=== PATIENT | male | born 1940 | race Caucasian/White ===

== ENCOUNTER 2016-06-12 20:34 | Emergency (ER) | payer MEDICARE, BC | END 2016-06-12 23:01 | disposition home or self-care (01) | DX: R07.89 Other chest pain (principal); I44.7 Left bundle-branch block, unspecified; Z95.2 Presence of prosthetic heart valve; Z79.01 Long term (current) use of anticoagulants; J45.909 Unspecified asthma, uncomplicated; Z86.73 Personal history of transient ischemic attack (TIA), and cerebral infarction without residual deficits; Z87.891 Personal history of nicotine dependence ==

== ENCOUNTER 2016-06-28 09:10 | Outpatient (CLI) | payer MEDICARE, BC ==
[2016-06-28] MEDS ORDERED: BARIUM SULFATE 135 ML BOTTLE PO ONE (10:11)
[2016-06-28] MEDS ORDERED: BARIUM SULFATE 176 GM BOTTLE PO ONE (10:11)
== END 2016-06-28 09:11 | disposition home or self-care (01) ==
DX: K21.9 Gastro-esophageal reflux disease without esophagitis (principal); K44.9 Diaphragmatic hernia without obstruction or gangrene; K22.8 Other specified diseases of esophagus
CPT/HCPCS: 74220; A9270

== ENCOUNTER 2017-01-26 09:00 | Outpatient (CLI) | payer MEDICARE, BC ==
[2017-01-26 13:41] LABS: BASOPHILS # (AUTO) 0.1 10^3/uL (0.0-0.1); EOSINOPHILS # (AUTO) 0.2 10^3/uL (0.0-0.7); EOSINOPHILS % (AUTO) 3.5 %; HCT - HEMATOCRIT 41.4 % (42.0-52.0); HGB - HEMOGLOBIN 14.4 g/dL (14.0-18.0); LYMPHOCYTES # (AUTO) 1.2 10^3/uL (1.5-3.5); MEAN CORPUSCULAR HEMOGLOBIN 31.7 pg (27.0-31.0); MEAN CORPUSCULAR HGB CONC 34.8 g/dL (32.0-36.0); MEAN PLATELET VOLUME 9.2 fL (7.4-11.4); MONOCYTES # (AUTO) 0.7 10^3/uL (0.0-1.0); MONOCYTES % (AUTO) 12.7 %; NEUTROPHILS # (AUTO) 3.1 10^3/uL (1.5-6.6); NEUTROPHILS % (AUTO) 59.8 %; RED BLOOD COUNT 4.56 10^6/uL (4.70-6.10); RED CELL DISTRIBUTION WIDTH 13.6 % (12.0-15.0); UNCORRECTED WHITE BLOOD COUNT 5.3 x10^3/uL; WHITE BLOOD COUNT 5.3 x10^3/uL (4.8-10.8)
[2017-01-26 13:49] LABS: ALBUMIN/GLOBULIN RATIO 1.6 (1.0-2.2); BILIRUBIN,TOTAL 1.2 mg/dL (0.2-1.0); BUN - BLOOD UREA NITROGEN 14 mg/dL (6-20); CALCIUM 9.6 mg/dL (8.5-10.3); CARBON DIOXIDE - CO2 30 mmol/L (21-32); CHLORIDE 105 mmol/L (101-111); CHOL/HDL RATIO 3.9 (<5.0); CHOLESTEROL 105 mg/dL; CREATININE 0.9 mg/dL (0.6-1.2); GFR - MDRD 82 (>89); GLUCOSE 97 mg/dL (70-100); HDL CHOLESTEROL 27 mg/dL; LDL/HDL RATIO 1.5 (<3.6); SODIUM 140 mmol/L (135-145); TOTAL PROTEIN 7.2 g/dL (6.7-8.2); TRIGLYCERIDES 191 mg/dL; VLDL CHOLESTEROL 38 mg/dL
== END 2017-01-26 09:01 ==
LOC: LAB.WCP 09:00
PROVIDERS: ATTEND Family Medicine
DX: R42 Dizziness and giddiness (principal); Q23.1 Congenital insufficiency of aortic valve; I10 Essential (primary) hypertension; I62.9 Nontraumatic intracranial hemorrhage, unspecified
CPT/HCPCS: 36415; 80053; 80061; 84443; 85025

== ENCOUNTER 2017-03-09 08:41 | Day surgery (SDC) | payer MEDICARE, BC ==
[2017-03-09] MEDS ORDERED: LACTATED RINGERS 1,000 ML IV ONE (08:51)
--- NOTE | 2017-03-09 09:42 | HISTORY & PHYSICAL EXAMINATION ---
HPI - History of Present Illness HPI Comment/Other: This is to serve as an update from H and P performed in January. Patient's last colonoscopy was in 2013 and was noted for a less than 1 cm tubular adenoma and a less than 1 cm sessile serrated adenoma at 70 cm.He denies any changes in his bowel habits including constipation or diarrhea. He denies any blood in his stools. He has no family history of colon cancer. He stopped taking his coumadin 5 days ago and has been bridged with Lovenox. Current Meds: PRILOSEC 20 MG CPDR (OMEPRAZOLE) Take one capsule by mouth one-half hour before evening meal ANUSOL-HC 2.5 % CREA (HYDROCORTISONE) Apply to affected area three times daily as needed COUMADIN 5 MG TABS (WARFARIN SODIUM) Monday - 5mg; Monday - 7.5mg; Monday - 5mg ; Monday - 7.5mg; - 5mg; Monday - 7.5mg; Monday - 5mg. FLUTICASONE PROPIONATE 50 MCG/ACT SUSP (FLUTICASONE PROPIONATE) Use one spray each nostril twice daily for allergies * [facility] Neurosurgery for intracranial bleed VITAMIN B-12 250 MCG TABS (CYANOCOBALAMIN) Take one tablet by mouth daily FLUOCINONIDE 0.05 % OINT (FLUOCINONIDE) Apply sparingly to affected area one to two times daily, taper as symptoms improve LISINOPRIL 20 MG TABS (LISINOPRIL) Take one tablet by mouth daily HYDROCHLOROTHIAZIDE 12.5 MG CAPS (HYDROCHLOROTHIAZIDE) Take one capsule by mouth daily SIMVASTATIN 20 MG TABS (SIMVASTATIN) Take one tablet by mouth at bedtime METAMUCIL 0.52 GM CAPS (PSYLLIUM) 4 caps daily FLONASE 50 MCG/ACT SUSP (FLUTICASONE PROPIONATE) [place] one spray each nostril twice daily as needed for allergies ALBUTEROL AERS (ALBUTEROL AERS) 2 puffs q4-6h prn wheezing Allergies: * CATS (Moderate) Past Medical History: Reviewed history from 06/29/2016 and no changes required: 1964, 1970--Mumps 2.11.2005--ER @[facility]--2hr episode of dysarthria, R. facial droop, R. side paresthesia. TIA, embolic to L. hemisphere. Inc. 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) Craniotomy: Tonsillectomy Denies any prior history of complications from anesthesia. Denies any history of surgical complications. Family History Summary: Reviewed history Last on 11/25/2016 and no changes required:01/20/2017 Son () - Has a son who is alive and well - Entered On: 08/06/2014 Mother (eliel.) - Has a Hx of Heart Disease - Entered On: 09/25/2014 Mother (eliel.) - Has a Hx of Stroke/CVA - Entered On: 09/25/2014 Mother (eliel.) - Has a Hx of Angina - Entered On: 09/25/2014 Father (eliel.) - Has Family History of Arthritis - Entered On: 06/29/2016 Father (eliel.) - Has Family History of Hypertension - Entered On: 06/29/2016 Mother (eliel.) - Has a Hx of Arthritis - Entered On: 01/20/2017 Mother (eliel.) - Has Family History of Other Medical Problems - Heart failure - Entered On: 01/20/2017 Father (eliel.) - Has Family History of Other Medical Problems - heart condition - Entered On: 01/20/2017 Social History: Reviewed history from 06/29/2016 and no changes required: Patient has never smoked. Passive smoke exposure - no Alcohol Use - yes Drug Use - no Smoking History: Patient is a former smoker. Risk Factors: Smoked Tobacco Use: Former smoker Drug use: no Alcohol use: yes Type: wine Drinks per day: <1 Exercise: yes Times per week: 3 Type of Exercise: stretches/strengthening Vital Signs: Patient Profile: 76 Years Old Male Height: 68.75 inches Weight: 193.2 pounds BMI: 28.74 O2 Sat: 95 % on room air Temp: 98.4 degrees F temporal Pulse rate: 64 / minute Pulse rhythm: regular Resp: 18 per minute BP sittin / 74 Cuff size: regular Vitals Entered By: Karri Og RN (January 20, 2017 1:33 PM) Problems were reviewed with the patient during this visit. Medications were reviewed with the patient during this visit. Allergies were reviewed with the patient during this visit. Allergies: * CATS (Moderate) Physical Exam General: well developed, well nourished, in no acute distress Lungs: clear bilaterally to A & P Heart: regular rate and rhythm, S1, S2 without murmurs, rubs, gallops, or clicks Abdomen: bowel sounds positive; abdomen soft and non-tender without masses, organomegaly, or hernias noted Pulses: pulses normal in all 4 extremities Extremities: no clubbing, cyanosis, edema, or deformity noted with normal full range of motion of all joints Cervical Nodes: no significant adenopathy Psych: alert and cooperative; normal mood and affect; normal attention span and concentration Impression & Recommendations: Problem # 1: Colonic polyps, adenomatous (ICD-211.3) ([id number]) Will proceed with colonoscopy. PMH/PSH - Past Medical History Cardiovascular: positive: Arrhythmia, Valve disorder Respiratory: positive: Asthma, Sleep apnea, CPAP use Neuro: positive: CVA, TIA Endocrine/Autoimmune: positive: None GI: positive: None, Colon polyps, Hemorrhoids, Diverticulitis : positive: None HEENT: positive: None, Chronic vision loss Psych: positive: None Musculoskeletal: positive: Osteoarthritis, Chronic back pain Derm: positive: Psoriasis, Other MRSA Hx?: No - Past Surgical History Cardiovascular: positive: Valve replacement HEENT: positive: Tonsil/Adenoidectomy Social & Family Hx - Social History Does the pt smoke?: No Smoking Status: Former smoker Does the pt drink ETOH?: Yes ETOH Use: Wine Does the pt have substance abuse?: No Meds/Allgy - Home Medications Home Medications: Ambulatory Orders Medication Instructions Recorded Confirmed Simvastatin 20 mg PO DAILY 09/13/13 03/09/17 Warfarin [Coumadin] 5 mg PO TUTHSA@1400 09/13/13 03/09/17 Lisinopril 20 mg PO DAILY 03/17/16 03/09/17 Fluticasone [Flonase] 2 sprays NICOLE DAILY 05/05/16 03/09/17 Hydrochlorothiazide 12.5 mg PO DAILY 05/05/16 03/09/17 Warfarin [Coumadin] 7.5 mg PO SUMOWEFR@1400 05/05/16 03/09/17 - Allergies Allergies/Adverse Reactions: Allergies Allergy/AdvReac Type Severity Reaction Status Date / Time No Known Drug Allergies Allergy Verified 03/17/16 11:37 Exam - Vital Signs Vital Signs: Vital Signs x48h Temp Pulse Resp BP Pulse Ox 03/09/17 08:51 36 C L 61 16 150/79 H 99
[2017-03-09] MEDS ORDERED: MIDAZOLAM 2 MG/2 ML VIAL IVP ONE (09:46)
[2017-03-09] MEDS ORDERED: fentaNYL 100 MCG/2 ML VIAL IVP ONE (09:46)
[2017-03-09 10:50] VITALS: BP 147/74
== END 2017-03-09 08:42 | disposition home or self-care (01) ==
LOC: SDS 08:41
PROVIDERS: ATTEND Surgery
PROC: 0DBK8ZX Excision of Ascending Colon, Via Natural or Artificial Opening Endoscopic, Diagnostic (ICD-10-PCS; principal; 2017-03-09 09:45)
DX: D12.2 Benign neoplasm of ascending colon (principal); K57.90 Diverticulosis of intestine, part unspecified, without perforation or abscess without bleeding; I10 Essential (primary) hypertension; E78.5 Hyperlipidemia, unspecified; Z95.2 Presence of prosthetic heart valve; J45.909 Unspecified asthma, uncomplicated; Z79.01 Long term (current) use of anticoagulants; Z87.891 Personal history of nicotine dependence
CPT/HCPCS: 45385; J7120

== ENCOUNTER 2017-03-30 07:28 | Day surgery (SDC) | payer MEDICARE, BC ==
[~2017-03-30 07:28] MED LIST: BRIMONIDINE 0.2% OPHTH DROPS 5 ML ONE; CYCLOPENTOLATE 1% OPHTH DROPS 2 ML ONE; KETOROLAC 0.45% OPHTH DROPS ONE; PHENYLEPHRINE 2.5% OPHTH 2 ML DROPS ONE; PROPARACAINE 0.5% OPHTH DROPS 15 ML ONE; TIMOLOL 0.5% OPHTH DROPS ONE
[2017-03-30] MEDS ORDERED: MIDAZOLAM 2 MG/2 ML VIAL IVP ONE (07:30)
[2017-03-30] MEDS ORDERED: KETOROLAC 0.45% OPHTH DROPS OPTH ONE (07:45)
[2017-03-30] MEDS ORDERED: CYCLOPENTOLATE 1% OPHTH DROPS 2 ML OPTH ONE (07:45)
[2017-03-30] MEDS ORDERED: PHENYLEPHRINE 2.5% OPHTH 2 ML DROPS OPTH ONE (07:45)
[2017-03-30] MEDS ORDERED: PROPARACAINE 0.5% OPHTH DROPS 15 ML OPTH ONE ×2 (07:45→08:48)
[2017-03-30] MEDS ORDERED: LACTATED RINGERS 500 ML IV ONE (07:54)
[2017-03-30] MEDS ORDERED: BRIMONIDINE 0.2% OPHTH DROPS 5 ML OPTH ONE (08:47)
[2017-03-30] MEDS ORDERED: BSS/LIDOCAINE/EPINEPHRINE 1 ML SYRINGE IO ONE ×2 (08:48)
[2017-03-30] MEDS ORDERED: EPINEPHrine 1 MG/ML AMP IVP ONE (08:48)
[2017-03-30] MEDS ORDERED: TIMOLOL 0.5% OPHTH DROPS OPTH ONE (08:48)
[2017-03-30] MEDS ORDERED: CHONDR SULF/HYALURONATE SYRINGE IO ONE (08:48)
[2017-03-30] MEDS ORDERED: TRIAMCIN/MOXIFLOX/VANCO 1 ML VIAL IO ONE ×2 (08:49)
[2017-03-30 09:10] VITALS: BP 117/66
--- NOTE | 2017-03-30 09:20 | OPERATIVE REPORT ---
DATE OF SURGERY: 03/30/2017 00:00:00 PREOPERATIVE DIAGNOSIS: Visually significant cataract, right eye. This was his first cataract surgery . POSTOPERATIVE DIAGNOSIS: Visually significant cataract, right eye. This was his first cataract surger y. NAME OF PROCEDURE: Phacoemulsification posterior chamber intraocular lens implant, right eye. SURGEON: Eddy Negrete MD. ANESTHESIA: Monitored anesthesia care. COMPLICATIONS: None. OPERATIVE INDICATIONS: This is a 76-year-old man with progressive vision loss in the right eye due to 2+ nuclear sclerotic cataract. Best corrected visual acuity was 20/50 with glare to 20/80 in the rig ht eye. INDICATIONS FOR SURGERY: Overall decrease in vision, difficulty seeing words on a computer screen, di fficulty reading, difficulty words or game scores on TV, difficulty seeing street signs, and difficul ty with glare or bright lights in any situation. He was consented at length concerning the risks and benefits of cataract surgery, after which he expressed a desire to proceed with surgery. OPERATIVE PROCEDURE: The patient was taken into OR #2 and placed under monitored anesthesia care. A s urgical time-out was conducted confirming the correct patient, correct procedure and correct surgical site. He was given topical anesthesia and prepped and draped in the usual sterile fashion. The eye w as entered at the 12 and 9 o'clock positions. Intracameral Shugarcaine was injected into the anterior chamber followed by Viscoat. A continuous tear curvilinear capsulorrhexis was performed. The nucleus was hydrodissected and phacoemulsified. The cortex was evacuated using automated infusion aspiration . Provisc was injected in the capsular bag and a 21.0 diopter intraocular lens inserted into the bag. Approximately 0.7 mL of a mixture of triamcinolone, moxifloxacin, and vancomycin was injected subcon junctivally in the superior quadrant for infection and inflammation prophylaxis. I/A was used to evac uate the viscoelastic materials. The eye was inflated to physiologic pressure using balanced salt andrew ution and found to be watertight. The patient was taken from the operating room in good condition and given postoperative instructions. JOB #: [id number] EXT JOB #:[id number]
== END 2017-03-30 07:29 | disposition home or self-care (01) ==
LOC: SDS 07:28
PROVIDERS: ATTEND Ophthalmology
PROC: 08RJ3JZ Replacement of Right Lens with Synthetic Substitute, Percutaneous Approach (ICD-10-PCS; principal; 2017-03-30 08:30)
DX: H25.11 Age-related nuclear cataract, right eye (principal); I10 Essential (primary) hypertension; Z86.73 Personal history of transient ischemic attack (TIA), and cerebral infarction without residual deficits; Z95.2 Presence of prosthetic heart valve; Z79.01 Long term (current) use of anticoagulants
CPT/HCPCS: 66984; A9270; J3490; V2632

== ENCOUNTER 2017-10-13 15:18 | Outpatient (CLI) | payer MEDICARE, BC ==
[2017-10-13 19:28] LABS: BASOPHILS % (AUTO) 0.7 %; EOSINOPHILS # (AUTO) 0.1 10^3/uL (0.0-0.7); EOSINOPHILS % (AUTO) 2.3 %; HGB - HEMOGLOBIN 14.5 g/dL (14.0-18.0); LYMPHOCYTES # (AUTO) 1.5 10^3/uL (1.5-3.5); LYMPHOCYTES % (AUTO) 23.2 %; MEAN CORPUSCULAR HGB CONC 33.6 g/dL (32.0-36.0); MEAN CORPUSCULAR VOLUME 92.1 fL (80.0-94.0); MEAN PLATELET VOLUME 9.2 fL (7.4-11.4); MONOCYTES # (AUTO) 0.8 10^3/uL (0.0-1.0); MONOCYTES % (AUTO) 11.9 %; NEUTROPHILS % (AUTO) 61.9 %; PLT - PLATELET COUNT 206 10^3/uL (130-450); RED BLOOD COUNT 4.69 10^6/uL (4.70-6.10); RED CELL DISTRIBUTION WIDTH 13.7 % (12.0-15.0); WHITE BLOOD COUNT 6.4 x10^3/uL (4.8-10.8)
[2017-10-13 19:41] LABS: ALBUMIN 4.7 g/dL (3.2-5.5); ALBUMIN/GLOBULIN RATIO 1.6 (1.0-2.2); BILIRUBIN,TOTAL 1.6 mg/dL (0.2-1.0); CALCIUM 9.5 mg/dL (8.5-10.3); CREATININE 0.9 mg/dL (0.6-1.2); TOTAL PROTEIN 7.7 g/dL (6.7-8.2)
== END 2017-10-13 15:19 | disposition home or self-care (01) ==
LOC: LAB.WCP 15:18
PROVIDERS: ATTEND Family Medicine
DX: R14.0 Abdominal distension (gaseous) (principal)
CPT/HCPCS: 36415; 80053; 85025

== ENCOUNTER 2017-10-20 11:13 | Outpatient (CLI) | payer MEDICARE, BC ==
[2017-10-20] MEDS ORDERED: IOPAMIDOL-300 100 ML VIAL IVP ONE (12:01)
[2017-10-20] MEDS ORDERED: IOPAMIDOL-300 50 ML VIAL PO ONE (12:01)
[2017-10-20] MEDS ORDERED: IOPAMIDOL-300 50 ML VIAL ONE (12:05)
[2017-10-20] MEDS ORDERED: IOPAMIDOL-300 100 ML VIAL ONE (12:05)
--- NOTE | 2017-10-20 13:50 | CT Report ---
ABDOMEN PELVIS CT WITH CONTRAST: 10/20/2017 COMPARISON: No comparison. INDICATION: Abdominal bloating. TECHNIQUE: Axial imaging of the abdomen and pelvis following the administration of oral and intravenous contrast, 100 mL of Isovue, 300. FINDINGS: There is a device about the aortic valve. Limited lung bases appear otherwise unremarkable apart from a 3 mm nodule in the left lung base axial image #1. The liver, spleen, pancreas and adrenal glands appear unremarkable. There is a tiny low attenuating focus in the right kidney, too small to characterize. Left kidney appears unremarkable. No free air or free fluid in the abdomen. There is a very small umbilical hernia containing fat only. No abnormalities of bowel are seen, apart from colon diverticula. There is no evidence of diverticulitis. There are no bone lesions. IMPRESSION: THERE ARE NO CT FINDINGS TO SUGGEST A CAUSE OF THE PATIENT'S SYMPTOMS. There is a 3 mm pulmonary nodule. No follow up in a low risk patient. In a high risk patient, may consider follow up at [address] DOSE REDUCTION STATEMENT In accordance with CT protocol optimization, one or more of the following dose reduction techniques were utilized for this exam: automated exposure control, adjustment of mA and/or KV based on patient size, or use of iterative reconstructive technique. TD: 10/20/2017 13:49 MTDD
== END 2017-10-20 11:14 | disposition home or self-care (01) ==
LOC: DI 11:13
PROVIDERS: ATTEND Family Medicine
DX: R14.0 Abdominal distension (gaseous) (principal); M17.9 Osteoarthritis of knee, unspecified
CPT/HCPCS: 74177; Q9967

== ENCOUNTER 2018-04-16 10:15 | Outpatient (CLI) | payer MEDICARE, BC | END 2018-04-16 10:16 | disposition home or self-care (01) | LOC: SC 10:15 | PROVIDERS: ATTEND Nurse Practitioner Family | DX: G47.33 Obstructive sleep apnea (adult) (pediatric) (principal) | CPT/HCPCS: 99214; G0463; 99212 ==

== ENCOUNTER 2018-07-25 09:04 | Outpatient (CLI) | payer MEDICARE, BC ==
[2018-07-25 12:50] LABS: BASOPHILS # (AUTO) 0.1 10^3/uL (0.0-0.1); BASOPHILS % (AUTO) 1.1 %; EOSINOPHILS # (AUTO) 0.2 10^3/uL (0.0-0.7); EOSINOPHILS % (AUTO) 3.1 %; HGB - HEMOGLOBIN 15.1 g/dL (14.0-18.0); LYMPHOCYTES # (AUTO) 1.2 10^3/uL (1.5-3.5); LYMPHOCYTES % (AUTO) 20.4 %; MEAN CORPUSCULAR HEMOGLOBIN 31.6 pg (27.0-31.0); MEAN CORPUSCULAR HGB CONC 33.5 g/dL (32.0-36.0); MEAN CORPUSCULAR VOLUME 94.4 fL (80.0-94.0); MEAN PLATELET VOLUME 8.8 fL (7.4-11.4); MONOCYTES # (AUTO) 0.7 10^3/uL (0.0-1.0); NEUTROPHILS # (AUTO) 3.7 10^3/uL (1.5-6.6); NEUTROPHILS % (AUTO) 63.4 %; PLT - PLATELET COUNT 202 10^3/uL (130-450); RED BLOOD COUNT 4.79 10^6/uL (4.70-6.10); RED CELL DISTRIBUTION WIDTH 13.7 % (12.0-15.0); WHITE BLOOD COUNT 5.9 x10^3/uL (4.8-10.8)
[2018-07-25 13:25] LABS: ALBUMIN 4.6 g/dL (3.2-5.5); ALBUMIN/GLOBULIN RATIO 1.5 (1.0-2.2); ALKALINE PHOSPHATASE 77 IU/L (42-121); ALT ALANINE AMINOTRANSFERASE 27 IU/L (10-60); AST ASPARTATE AMINOTRANSFERASE 28 IU/L (10-42); BILIRUBIN,TOTAL 1.3 mg/dL (0.2-1.0); BUN - BLOOD UREA NITROGEN 16 mg/dL (6-20); CALCIUM 9.8 mg/dL (8.5-10.3); CARBON DIOXIDE - CO2 29 mmol/L (21-32); CHLORIDE 102 mmol/L (101-111); CHOL/HDL RATIO 3.8 (<5.0); CHOLESTEROL 122 mg/dL; CREATININE 0.9 mg/dL (0.6-1.2); GFR - MDRD 81 (>89); GLUCOSE 107 mg/dL (70-100); HDL CHOLESTEROL 32 mg/dL; LDL CHOLESTEROL,CALCULATED 54 mg/dL; LDL/HDL RATIO 1.7 (<3.6); SODIUM 139 mmol/L (135-145); TOTAL PROTEIN 7.6 g/dL (6.7-8.2); VLDL CHOLESTEROL 36 mg/dL
== END 2018-07-25 09:05 | disposition home or self-care (01) ==
LOC: LAB.WCP 09:04
PROVIDERS: ATTEND Family Medicine
DX: I10 Essential (primary) hypertension (principal); Q23.1 Congenital insufficiency of aortic valve; E78.5 Hyperlipidemia, unspecified
CPT/HCPCS: 36415; 80053; 80061; 83721; 84443; 85025

== ENCOUNTER 2018-08-01 14:40 | Outpatient (CLI) | payer MEDICARE, BC ==
[2018-08-01 19:57] LABS: TROPONIN I < 0.04 ng/mL (<0.49)
[2018-08-01 19:59] LABS: CREATINE KINASE MB 2.9 ng/mL (0.6-6.3)
== END 2018-08-01 14:41 | disposition home or self-care (01) ==
LOC: LAB.WCP 14:40
PROVIDERS: ATTEND Family Medicine
DX: R51 Headache (principal); R07.9 Chest pain, unspecified
CPT/HCPCS: 36415; 82553; 84484; 85651; 86140

== ENCOUNTER 2018-09-06 08:00 | Outpatient (CLI) | payer MEDICARE, BC | END 2018-09-06 23:59 | disposition home or self-care (01) | LOC: LAB.WCP 08:00 | PROVIDERS: ATTEND Family Medicine | DX: Z51.81 Encounter for therapeutic drug level monitoring (principal); Z95.2 Presence of prosthetic heart valve; Z79.01 Long term (current) use of anticoagulants; Z86.73 Personal history of transient ischemic attack (TIA), and cerebral infarction without residual deficits ==

== ENCOUNTER 2018-10-04 08:00 | Outpatient (CLI) | payer MEDICARE, BC | END 2018-10-04 23:59 | disposition home or self-care (01) | LOC: LAB.WCP 08:00 | PROVIDERS: ATTEND Family Medicine | DX: Z51.81 Encounter for therapeutic drug level monitoring (principal); Z95.2 Presence of prosthetic heart valve; Z79.01 Long term (current) use of anticoagulants | CPT/HCPCS: 81025 ==

== ENCOUNTER 2018-10-18 08:00 | Outpatient (CLI) | payer MEDICARE, BC | END 2018-10-18 23:59 | disposition home or self-care (01) | LOC: LAB.WCP 08:00 | PROVIDERS: ATTEND Family Medicine | DX: I48.91 Unspecified atrial fibrillation (principal); Z79.01 Long term (current) use of anticoagulants ==

== ENCOUNTER 2018-10-31 08:00 | Outpatient (CLI) | payer MEDICARE, BC | END 2018-10-31 23:59 | disposition home or self-care (01) | LOC: LAB.WCP 08:00 | PROVIDERS: ATTEND Family Medicine | DX: Z95.2 Presence of prosthetic heart valve (principal); Z79.01 Long term (current) use of anticoagulants ==

== ENCOUNTER 2018-11-29 08:00 | Outpatient (CLI) | payer MEDICARE, BC | END 2018-11-29 08:01 | disposition home or self-care (01) | LOC: LAB.WCP 08:00 | PROVIDERS: ATTEND Family Medicine | DX: Z79.52 Long term (current) use of systemic steroids (principal); Z79.01 Long term (current) use of anticoagulants ==

== ENCOUNTER 2018-12-27 08:00 | Outpatient (CLI) | payer MEDICARE, BC | END 2018-12-27 08:01 | disposition home or self-care (01) | LOC: LAB.WCP 08:00 | PROVIDERS: ATTEND Family Medicine | DX: Q23.1 Congenital insufficiency of aortic valve (principal); Z95.2 Presence of prosthetic heart valve; Z79.01 Long term (current) use of anticoagulants ==

== ENCOUNTER 2019-01-10 08:00 | Outpatient (CLI) | payer MEDICARE, BC | END 2019-01-10 23:59 | disposition home or self-care (01) | LOC: LAB.WCP 08:00 | PROVIDERS: ATTEND Family Medicine | DX: Z95.2 Presence of prosthetic heart valve (principal); Z79.01 Long term (current) use of anticoagulants; I63.9 Cerebral infarction, unspecified ==

== ENCOUNTER 2019-01-17 08:00 | Outpatient (CLI) | payer MEDICARE, BC | END 2019-01-17 23:59 | disposition home or self-care (01) | LOC: LAB.WCP 08:00 | PROVIDERS: ATTEND Family Medicine | DX: Z95.2 Presence of prosthetic heart valve (principal); Z79.01 Long term (current) use of anticoagulants ==

== ENCOUNTER 2019-01-31 08:00 | Outpatient (CLI) | payer MEDICARE, BC | END 2019-01-31 23:59 | disposition home or self-care (01) | LOC: LAB.WCP 08:00 | PROVIDERS: ATTEND Family Medicine | DX: I63.9 Cerebral infarction, unspecified (principal); Z95.2 Presence of prosthetic heart valve; Z79.01 Long term (current) use of anticoagulants ==

== ENCOUNTER 2019-02-15 08:00 | Outpatient (CLI) | payer MEDICARE, BC | END 2019-02-15 23:59 | disposition home or self-care (01) | LOC: LAB.WCP 08:00 | PROVIDERS: ATTEND Family Medicine | DX: I63.9 Cerebral infarction, unspecified (principal); Z95.2 Presence of prosthetic heart valve; Z79.01 Long term (current) use of anticoagulants ==

== ENCOUNTER 2019-03-13 08:00 | Outpatient (CLI) | payer MEDICARE, BC | END 2019-03-13 23:59 | disposition home or self-care (01) | LOC: LAB.WCP 08:00 | PROVIDERS: ATTEND Family Medicine | DX: Z95.2 Presence of prosthetic heart valve (principal); Z79.01 Long term (current) use of anticoagulants ==

== ENCOUNTER 2019-04-10 08:00 | Outpatient (CLI) | payer MEDICARE, BC | END 2019-04-10 23:59 | disposition home or self-care (01) | LOC: LAB.WCP 08:00 | PROVIDERS: ATTEND Family Medicine | DX: Z95.2 Presence of prosthetic heart valve (principal); Z79.01 Long term (current) use of anticoagulants; I63.9 Cerebral infarction, unspecified ==

== ENCOUNTER 2019-04-24 15:34 | Emergency (ER) | payer MEDICARE, BC ==
[2019-04-24 17:28] LABS: INR 2.6 (0.8-1.2); PT - PROTHROMBIN TIME 28.1 secs (9.9-12.6)
--- NOTE | 2019-04-24 17:39 | ED Physician Documentation ---
PD HPI HEADACHE - Stated complaint Stated Complaint: MAZARIEGOS - Chief complaint Chief Complaint: Neuro - History obtained from History obtained from: Patient, Family - History of Present Illness Timing - onset: How many days ago (3) Timing - onset during: Rest Timing - duration: Days (3) Timing - details: Gradual onset Severity Comments: mild to moderate Worst headache ever?: No: Worst headache ever? Location: Back, Left Quality: Aching. No: Thunderclap, Throbbing, Stabbing, Like head is exploding Associated symptoms: Eye pain (he did have some eye irritation but this resolved. He saw his eye doctor about it yesterday and it has improved. His eye exam was unremarkable per the patient). No: Fever, Stiff neck, Nausea, Vomiting, Weakness, Numbness, Syncope, Seizure, Vision changes Improved by: Other (it's resolved now in the ED) Worsened by: Other (nothing in particular) Contributing factors: Anticoagulated (patient is on warfarin for his prosthetic heart valve despite hx of a subdural head bleed a few years ago) Similar symptoms before: Other (last time he had a headache it was subdural but he had hit his head earlier that week. now denies any hx of falls or trauma.) Recently seen: Clinic (seen in eye clinic yesterday for headache and eye irritation, denies loss of vision and all symptoms have resolved) - Treatment prior to arrival Treatment prior to arrival: tylenol with some relief Review of Systems Ten Systems: 10 systems reviewed and negative Constitutional: denies: Fever Eyes: denies: Loss of vision, Decreased vision, Photophobia Ears: reports: Reviewed and negative Nose: reports: Reviewed and negative Cardiac: reports: Reviewed and negative Respiratory: reports: Reviewed and negative GI: reports: Reviewed and negative. denies: Nausea, Vomiting Musculoskeletal: denies: Neck pain Neurologic: reports: Headache. denies: Generalized weakness, Focal weakness, Numbness, Difficulty speaking, Near syncope, Syncope, Seizure, Confused, Altered mental status, Head injury, LOC Immunocompromised: reports: Reviewed and negative PD PAST MEDICAL HISTORY - Past Medical History Past Medical History: Yes Cardiovascular: Arrhythmia, Valve disorder Respiratory: Asthma, Sleep apnea, CPAP use Endocrine/Autoimmune: None GI: None, Colon polyps, Hemorrhoids, Diverticulitis : None HEENT: None, Chronic vision loss Psych: None Musculoskeletal: Osteoarthritis, Chronic back pain Derm: Psoriasis, Other - Past Surgical History Past Surgical History: Yes Cardiovascular: Valve replacement HEENT: Tonsil/Adenoidectomy - Present Medications Home Medications: Ambulatory Orders Medication Instructions Recorded Confirmed Simvastatin 20 mg PO DAILY 09/13/13 03/09/17 Lisinopril 20 mg PO DAILY 03/17/16 03/09/17 Fluticasone [Flonase] 2 sprays NICOLE DAILY 05/05/16 03/09/17 Hydrochlorothiazide 12.5 mg PO DAILY 05/05/16 03/09/17 Warfarin [Coumadin] 7.5 mg PO SUMOWEFR@1400 05/05/16 03/09/17 - Allergies Allergies/Adverse Reactions: Allergies Allergy/AdvReac Type Severity Reaction Status Date / Time No Known Drug Allergies Allergy Verified 03/17/16 11:37 - Social History Does the pt smoke?: No Smoking Status: Never smoker Does the pt drink ETOH?: Yes Does the pt have substance abuse?: No - Immunizations Immunizations are current?: Yes PD ED PE NORMAL - Vitals Vital signs reviewed: Yes - General General: Alert and oriented X 3, No acute distress, Well developed/nourished - HEENT HEENT: Atraumatic, Pharynx benign - Neck Neck: Supple, no meningeal sign, No JVD - Cardiac Cardiac: RRR - Respiratory Respiratory: No respiratory distress - Abdomen Abdomen: Soft, Non tender, Non distended - Male Male : Deferred - Rectal Rectal: Deferred - Derm Derm: Normal color, Warm and dry, No rash - Extremities Extremities: No deformity, No tenderness to palpate, Normal ROM s pain, No edema - Neuro Neuro: Alert and oriented X 3, offc spec 2-12 intact, No motor deficit, No sensory deficit, Normal speech Eye Opening: Spontaneous Motor: Obeys Commands Verbal: Oriented GCS Score: 15 - Psych Psych: Normal mood, Normal affect PD ED PE EXPANDED - Neuro Neuro: PERRL, Cerebellar nl, Normal gait, Normal finger nose, Normal speech Results - Vitals Vitals: Vital Signs - 24 hr 04/24/19 04/24/19 04/24/19 15:49 16:33 16:36 Temperature 36.8 C Heart Rate 59 L 64 60 Respiratory 18 16 20 Rate Blood Pressure 183/86 H 191/96 H 160/85 H O2 Saturation 97 100 98 04/24/19 04/24/19 17:37 18:23 Temperature Heart Rate 56 L 57 L Respiratory 16 18 Rate Blood Pressure 139/82 H 140/80 H O2 Saturation 97 97 Oxygen O2 Source Room air - Labs Labs: Laboratory Tests 04/24/19 16:29 PT 28.1 H INR 2.6 H - Rads (name of study) CT head Radiology: Final report received (no acute abnormality), See rad report PD MEDICAL DECISION MAKING - ED course Complexity details: reviewed results, re-evaluated patient, considered differential, d/w patient, d/w family ED course: ddx- SAH, ICH, migraine, glaucoma, tension headache 78 y/o M well appearing with headache of gradual onset earlier this week, now resolved. No neuro deficits, reported some eye irritation but has a normal eye exam, normal vision and saw his eye doctor yesterday with a normal exam as well. Obtained CT head given prior hx of subdural and pt is on warfarin. But low suspicion for bleed given no hx of trauma or falls. Ct head was negative. I doubt he has a SAH given headache was mild and of gradual onset. Pt is currently asymptomatic thus feel he is stable for discharge with outpt f/u and return precautions given if worsening or new concerning symptoms develop. Departure - Departure Disposition: 01 Home, Self Care Clinical Impression: Headache Qualifiers: Headache type: unspecified Headache chronicity pattern: acute headache Intractability: not intractable Qualified Code(s): R51 - Headache Condition: Stable Record reviewed to determine appropriate education?: Yes Instructions: ED Headache Tension Follow-Up: Carl Artis MD [Primary Care Provider] - As Needed Comments: Your CT head today was negative for any acute abnormalities or head bleeding or signs of stroke. Your neurologic examination was also normal. Your INR was 2.6 You can take tylenol up to 1000mg every 6 hours as needed for pain. Follow up with your regular doctor if symptoms persist. Discharge Date/Time: 04/24/19 18:24
--- NOTE | 2019-04-24 18:02 | CT Report ---
Reason: headache, hx of subdural, on warfarin Procedure Date: 04/24/2019 Accession Number: [id number] / [id number] Procedure: CT - HEAD WO CPT Code: Final Report FULL RESULT: EXAM: CT HEAD EXAM DATE: 04/24/2019 05:24 PM. CLINICAL HISTORY: Headache, hx of subdural, on warfarin. COMPARISON: HEAD W/O 03/17/2016 11:16 AM. TECHNIQUE: Multiaxial CT images were obtained from the foramen magnum to the vertex. Reformats: Sagittal and coronal. IV contrast: None. In accordance with CT protocol optimization, one or more of the following dose reduction techniques were utilized for this exam: automated exposure control, adjustment of mA and/or KV based on patient size, or use of iterative reconstructive technique. FINDINGS: Parenchyma: No intraparenchymal hemorrhage. No evidence of mass, midline shift, or CT findings of acute infarction. Balderas-white differentiation is distinct. Diffuse chronic microangiopathic white matter changes. Extraaxial Spaces: Normal for age. No subdural or epidural collections. Ventricles: The ventricles and cortical sulci are enlarged, consistent with age-related tissue loss. Sinuses and orbits: Imaged paranasal sinuses, orbits, and mastoids show no significant abnormality. Bones: Interval right parietal craniotomy. Otherwise unremarkable. Other: None. IMPRESSION: Atrophy and other chronic findings. No acute disease. RADIA
[2019-04-24 18:24] VITALS: BP 140/80
== END 2019-04-24 18:24 | disposition home or self-care (01) ==
LOC: ED 15:34
DX: R51 Headache (principal); Z95.2 Presence of prosthetic heart valve; Z79.01 Long term (current) use of anticoagulants; Z87.820 Personal history of traumatic brain injury
CPT/HCPCS: 36415; 70450; 85610; 99284

== ENCOUNTER 2019-05-08 08:00 | Outpatient (CLI) | payer MEDICARE, BC | END 2019-05-08 23:59 | disposition home or self-care (01) | LOC: LAB.WCP 08:00 | PROVIDERS: ATTEND Family Medicine | DX: Z79.01 Long term (current) use of anticoagulants (principal); Z95.2 Presence of prosthetic heart valve; I63.9 Cerebral infarction, unspecified ==

== ENCOUNTER 2019-06-20 08:00 | Outpatient (CLI) | payer MEDICARE, BC | END 2019-06-20 23:59 | disposition home or self-care (01) | LOC: LAB.WCP 08:00 | PROVIDERS: ATTEND Family Medicine | DX: Z79.01 Long term (current) use of anticoagulants (principal); Z95.2 Presence of prosthetic heart valve ==

== ENCOUNTER 2019-07-04 08:00 | Outpatient (CLI) | payer MEDICARE, BC | END 2019-07-04 23:59 | disposition home or self-care (01) | LOC: LAB.WCP 08:00 | PROVIDERS: ATTEND Family Medicine | DX: Z79.01 Long term (current) use of anticoagulants (principal); Z95.2 Presence of prosthetic heart valve ==

== ENCOUNTER 2019-07-18 08:00 | Outpatient (CLI) | payer MEDICARE, BC | END 2019-07-18 23:59 | disposition home or self-care (01) | LOC: LAB.WCP 08:00 | PROVIDERS: ATTEND Family Medicine | DX: Z79.01 Long term (current) use of anticoagulants (principal); Z95.2 Presence of prosthetic heart valve; I63.9 Cerebral infarction, unspecified ==

== ENCOUNTER 2019-08-01 08:00 | Outpatient (CLI) | payer MEDICARE, BC | END 2019-08-01 23:59 | disposition home or self-care (01) | LOC: LAB.WCP 08:00 | PROVIDERS: ATTEND Family Medicine | DX: Q23.1 Congenital insufficiency of aortic valve (principal); I63.9 Cerebral infarction, unspecified; Z79.01 Long term (current) use of anticoagulants | CPT/HCPCS: 81025; 85610 ==

== ENCOUNTER 2019-08-07 22:08 | Emergency (ER) | payer MEDICARE, BC ==
[2019-08-07 22:33] LABS: BASOPHILS # (AUTO) 0.1 10^3/uL (0.0-0.1); BASOPHILS % (AUTO) 0.9 %; EOSINOPHILS # (AUTO) 0.3 10^3/uL (0.0-0.7); HGB - HEMOGLOBIN 14.9 g/dL (14.0-18.0); LYMPHOCYTES # (AUTO) 1.4 10^3/uL (1.5-3.5); LYMPHOCYTES % (AUTO) 22.2 %; MEAN PLATELET VOLUME 10.6 fL (7.4-11.4); MONOCYTES # (AUTO) 0.9 10^3/uL (0.0-1.0); MONOCYTES % (AUTO) 13.6 %; NEUTROPHILS # (AUTO) 3.7 10^3/uL (1.5-6.6); NEUTROPHILS % (AUTO) 58.1 %; PLT - PLATELET COUNT 200 10^3/uL (130-450); RED BLOOD COUNT 4.66 10^6/uL (4.70-6.10); RED CELL DISTRIBUTION WIDTH 13.1 % (12.0-15.0); WHITE BLOOD COUNT 6.4 x10^3/uL (4.8-10.8)
--- NOTE | 2019-08-07 22:34 | ED Physician Documentation ---
History of Present Illness - Stated complaint Stated Complaint: CP - Chief complaint Chief Complaint: Cardiac - History obtained from History obtained from: Patient, Family - History of Present Illness Pain level now: 0 Quality: DULL Radiates to: NONE Improved by: NOTHING Worsened by: NOTHING - Additonal information Additional information: 79 YEAR OLD MALE WITH HX OF AORTIC VALVE REPLACEMENT IN 2000 PRESENTS TO THE ED WITH LEFT SIDED CHEST PAIN (DULL) WITHOUT RADIATION ABOUT AN HOUR AGO. PAIN LASTED FOR AN HOUR AND IT RESOLVED AFTER HE BURPED ONCE. HE DENIES SHORTNESS OF BREATH, NAUSEA, VOMITING. HE DENIES ASSOCIATED SHORTNESS OF BREATH, DIZZINESS, DIAPHORESIS. HE WAS STARTED ON NORVASC YESTERDAY AND WAS INSTRUCTED TO GO TO THE EMERGENCY DEPARTMENT IF HE DEVELOPED ANY CHEST PAIN, DIZZINESS OR SYNCOPE. HE REPORTED OF MILD COUGH (CHRONIC WITH POST NASAL DRIP). Review of Systems Constitutional: denies: Fever, Chills Eyes: denies: Loss of vision, Decreased vision Ears: denies: Loss of hearing, Ear pain Nose: denies: Rhinorrhea / runny nose, Sinus pressure / pain Throat: denies: Sore throat Cardiac: reports: Chest pain / pressure. denies: Palpitations Respiratory: denies: Dyspnea, Cough GI: denies: Abdominal Pain, Nausea, Vomiting Skin: denies: Rash Musculoskeletal: denies: Neck pain, Back pain PD PAST MEDICAL HISTORY - Past Medical History Past Medical History: Yes Cardiovascular: Arrhythmia, Valve disorder Respiratory: Asthma, Sleep apnea, CPAP use Neuro: None Endocrine/Autoimmune: None GI: None, Colon polyps, Hemorrhoids, Diverticulitis : None HEENT: None, Chronic vision loss Psych: None Musculoskeletal: Osteoarthritis, Chronic back pain Derm: Psoriasis, Other - Past Surgical History Past Surgical History: Yes Cardiovascular: Valve replacement HEENT: Tonsil/Adenoidectomy - Present Medications Home Medications: Ambulatory Orders Medication Instructions Recorded Confirmed Simvastatin 20 mg PO DAILY 09/13/13 08/07/19 lisinopriL [Lisinopril] 20 mg PO BID 03/17/16 08/07/19 Fluticasone [Flonase] 2 sprays NICOLE DAILY 05/05/16 08/07/19 Hydrochlorothiazide 12.5 mg PO DAILY 05/05/16 08/07/19 Warfarin [Coumadin] 7.5 mg PO SUMOWEFR@1400 05/05/16 08/07/19 Acetaminophen 500 mg PO PRN PRN 08/07/19 Omeprazole 20 mg PO TID 08/07/19 08/07/19 Sildenafil Citrate [Viagra] 50 mg PO PRN PRN 08/07/19 Vit B12 250 mcg PO DAILY 08/07/19 08/07/19 amLODIPine [Norvasc] 2.5 mg PO DAILY 08/07/19 08/07/19 - Allergies Allergies/Adverse Reactions: Allergies Allergy/AdvReac Type Severity Reaction Status Date / Time No Known Drug Allergies Allergy Verified 08/07/19 22:13 - Social History Does the pt smoke?: No Smoking Status: Never smoker Does the pt drink ETOH?: Yes Does the pt have substance abuse?: No - Immunizations Immunizations are current?: Yes - POLST Patient has POLST: No PD ED PE NORMAL - Vitals Vital signs reviewed: Yes - General General: Alert and oriented X 3, No acute distress, Well developed/nourished - HEENT HEENT: Atraumatic, EOMI, Moist mucous membranes - Neck Neck: Supple, no meningeal sign, No bony TTP - Cardiac Cardiac: RRR - Respiratory Respiratory: No respiratory distress - Abdomen Abdomen: Normal bowel sounds, Soft, Non tender, Non distended - Back Back: No CVA TTP - Derm Derm: Normal color, Warm and dry - Extremities Extremities: No deformity - Neuro Neuro: Alert and oriented X 3, 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 2-12 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 Eye Opening: Spontaneous Motor: Obeys Commands Verbal: Oriented GCS Score: 15 Results - Vitals Vitals: Oxygen O2 Source Room air - EKG (time done) 2219 Rate: Rate (enter#) Rhythm: NSR Imboden: LAD Intervals: Normal MO, Prolonged QT, Wide QRS, LBBB Ischemia: Non specific changes Computer interpretation: Agree with computer - Labs Labs: Laboratory Tests 08/07/19 08/07/19 08/07/19 22:27 22:27 22:27 WBC 6.4 RBC 4.66 L Hgb 14.9 Hct 43.8 MCV 94.0 MCH 32.0 H MCHC 34.0 RDW 13.1 Plt Count 200 MPV 10.6 Neut # (Auto) 3.7 Lymph # (Auto) 1.4 L [place] # (Auto) 0.9 Eos # (Auto) 0.3 Baso # (Auto) 0.1 Absolute Nucleated RBC 0.00 Nucleated RBC % 0.0 PT 30.4 H INR 2.8 H Sodium 139 Potassium 3.7 Chloride 100 L Carbon Dioxide 29 Anion Gap 10.0 BUN 18 Creatinine 1.1 Estimated GFR (MDRD) 64 L Glucose 109 H Calcium 9.5 Total Bilirubin 0.9 AST 25 ALT 22 Alkaline Phosphatase 79 Troponin I High Sens B-Natriuretic Peptide Total Protein 7.6 Albumin 4.6 Globulin 3.0 Albumin/Globulin Ratio 1.5 Lipase 36 08/07/19 08/07/19 08/08/19 22:27 22:27 01:10 WBC RBC Hgb Hct MCV MCH MCHC RDW Plt Count MPV Neut # (Auto) Lymph # (Auto) [place] # (Auto) Eos # (Auto) Baso # (Auto) Absolute Nucleated RBC Nucleated RBC % PT INR Sodium Potassium Chloride Carbon Dioxide Anion Gap BUN Creatinine Estimated GFR (MDRD) Glucose Calcium Total Bilirubin AST ALT Alkaline Phosphatase Troponin I High Sens 10.5 12.6 B-Natriuretic Peptide 23 Total Protein Albumin Globulin Albumin/Globulin Ratio Lipase PD MEDICAL DECISION MAKING - ED course Complexity details: reviewed results, re-evaluated patient, d/w patient, d/w family ED course: 79 YEAR OLD MALE PRESENTS TO THE EMERGENCY DEPARTMENT BECAUSE OF CHEST DISCOMFORT AN HOUR PRIOR TO ARRIVAL. HE DENIES ANY ASSOCIATED NAUSEA, VOMITING, DIZZINESS, SHORTNESS, SYNCOPE OR NEAR SYNCOPE. PATIENT REMAINED HEMODYNAMICALLY STABLE. EKG DID NOT ISCHEMIC FINDINGS. SERIAL TROPONINS WERE NEGATIVE. INR IS WITHIN THERAPEUTIC CHANGE AND THEREFORE I HAVE A LOW SUSPICION FOR PULMONARY EMBOLISM A CAUSE OF HIS SYMPTOMS. SYMPTOMS WERE RATHER ATYPICAL OF ACUTE CORONARY SYNDROME. CXR DID NOT SHOW PNEUMONIA, PLEURAL EFFUSION A CAUSE OF HIS PAIN. AT THIS TIME, PATIENT WAS STABLE TO BE DISCHARGED HOME WITH OUTPATIENT FOLLOW UP WITH PCP IN 3 DAYS. STRICT RETURN INSTRUCTIONS WERE GIVEN. PATIENT WAS DISCHARGED IN STABLE CONDITION. Departure - Departure Disposition: 01 Home, Self Care Clinical Impression: Chest pain Condition: Good Instructions: ED Chest Pain Atypical Unkn Cause Follow-Up: Carl Artis MD [Primary Care Provider] - Within 3 Days Comments: PLEASE FOLLOW UP WITH YOUR DOCTOR/ VEHICLE AND EQUIPMENT CLEANER IN 3 DAYS. PLEASE TALK TO YOUR DOCTOR ABOUT YOUR SYMPTOMS AND MANAGEMENT OF YOUR BLOOD PRESSURE. PLEASE RETURN TO THE EMERGENCY DEPARTMENT IF YOU DEVELOP SHORTNESS OF BREATH, DIZZINESS, DIAPHORESIS, WORSENING CHEST PAIN OR ANY NEW OR CONCERNING SYMPTOMS. Discharge Date/Time: 08/08/19 02:13
[2019-08-07 22:40] LABS: INR 2.8 (0.8-1.2); PT - PROTHROMBIN TIME 30.4 secs (9.9-12.6)
[2019-08-07 22:46] LABS: ALBUMIN 4.6 g/dL (3.2-5.5); ALBUMIN/GLOBULIN RATIO 1.5 (1.0-2.2); BILIRUBIN,TOTAL 0.9 mg/dL (0.2-1.0); CALCIUM 9.5 mg/dL (8.5-10.3); CREATININE 1.1 mg/dL (0.6-1.2); TOTAL PROTEIN 7.6 g/dL (6.7-8.2)
--- NOTE | 2019-08-07 23:15 | XRAY Report ---
Reason: Chest Pain Procedure Date: 08/07/2019 Accession Number: [id number] / [id number] Procedure: XR - Chest 1 View X-Ray CPT Code: 88901 Final Report FULL RESULT: EXAM: CHEST RADIOGRAPHY EXAM DATE: 08/07/2019 10:30 PM. CLINICAL HISTORY: Chest pain. COMPARISON: CHEST 1 VIEW 05/05/2016 4:05 AM. TECHNIQUE: 1 view. FINDINGS: Lungs/Pleura: No focal opacities evident. No pleural effusion. No pneumothorax. Mediastinum: Stable cardiomediastinal contours with upper normal cardiac silhouette size. Sternotomy wires. Other: Stable osseous structures with degenerative changes. IMPRESSION: No acute cardiopulmonary process. RADIA
[2019-08-08 01:07] VITALS: BP 127/81
== END 2019-08-08 02:13 | disposition home or self-care (01) ==
LOC: ED 22:08
DX: R07.9 Chest pain, unspecified (principal); I44.7 Left bundle-branch block, unspecified; I45.81 Long QT syndrome; Z95.2 Presence of prosthetic heart valve; Z79.01 Long term (current) use of anticoagulants
CPT/HCPCS: 36415; 71045; 80053; 83690; 83880; 84484; 85025; 85610; 93005; 99284

== ENCOUNTER 2019-09-13 08:00 | Outpatient (CLI) | payer MEDICARE, BC | END 2019-09-13 23:59 | disposition home or self-care (01) | LOC: LAB.WCP 08:00 | PROVIDERS: ATTEND Family Medicine | DX: I63.9 Cerebral infarction, unspecified (principal); Z79.01 Long term (current) use of anticoagulants; Z95.2 Presence of prosthetic heart valve ==

== ENCOUNTER 2019-09-26 08:00 | Outpatient (CLI) | payer MEDICARE, BC | END 2019-09-26 23:59 | disposition home or self-care (01) | LOC: LAB.WCP 08:00 | PROVIDERS: ATTEND Family Medicine | DX: Q23.1 Congenital insufficiency of aortic valve (principal); Z79.01 Long term (current) use of anticoagulants ==

== ENCOUNTER 2019-10-08 15:47 | Outpatient (CLI) | payer MEDICARE, BC ==
--- NOTE | 2019-10-08 13:56 | SLEEP CARE CONSULTATION ---
Information from patient questionnaire entered by Violet He. I have reviewed and concur with the information entered by Violet He. This document represents the service I personally performed and the decisions made by me, Sanya Persaud MD, [facility]. History of Present Illness Service Date and Time: 10/08/2019 1340 Previous diagnosis: Moderate, Obstructive Sleep Apnea-Hypopnea Syndrome AHI: 19.8 Reason for follow up: annual Equipment type: CPAP Equipment obtained from: [facility] additional information: To minimize the risk of COVID-19 exposure, the patient has requested and consented to this video telemedicine visit. The patient also agrees to having his insurance billed. HPI: Mr. Martínez was called today to follow up on the nasal CPAP therapy. He was diagnosed to have moderate obstructive sleep apnea-hypopnea syndrome. The patient wears a Respironics DreamWear full face mask. He reports using the device nightly and all through the night. The compliance report shows usage in 179 nights out of the past 180 nights, averaging 7.4 hours a night. The > 4 hour compliance rate for the past 30 days is 99.4%. He complained of the device not delivering the pressure but no particular problem with the device such as soreness on the face, dry nose, epistaxis, nasal congestion or headache. He thinks that the pressure 6 10 cmH2O is comfortable. On the CPAP therapy he notices improvement in his sleep quality, and that he wakes up feeling fresher in the morning and more awake/alert during the day. His notices no snore at all. The average residual AHI is 19.6 (CA 8.3 and OA 6.6) ; and average time in large leak per day is 13 minutes. The 90th percentile pressure is 9.3 cmH2O. CPAP Compliance Data - Data Reviewed with Patient Average duration of nightly device use: 7H 23M Compliance rate %: 97.2 Current pressure setting (cmH2O): 6-10 Humidity settin Heated hose settin Average residual AHI: 19.6 Average large leak: 13M 27S Subjective Initial [place] Sleepiness Scale score: 6 Allergies and Home Medications Drug allergies reviewed: Yes Home medication list reviewed: Yes Review of Systems Review of systems same as previous: Yes Physical Exam Height: 5 ft 9 in Impression and Plan IMPRESSION: 1. Obstructive Sleep Apnea-Hypopnea Syndrome, moderate (AHI was 19.8), with the patient doing well on nasal CPAP therapy. He has excellent compliance and significant clinical improvement. The current pressure appears ineffective but comfortable. His mask fits well. Overall, he is very satisfied with treatment and plans to continue with it long-term. The ineffectiveness may be due to his machine malfunctioning. I will order him a new one because it has been 5 years. I will set it slightly higher at 6 12 cmH2O. If still ineffective, another manual CPAP/BiPAP titration study will be performed. PLAN: 1. Prescription made for an autoCPAP, heated humidifier, and related supplies. The patient would like to switch from [facility] to [employer]. 2. Return for follow up after one month on the new machine. 3. Consider a manual CPAP/BiPAP titration study if the residual AHI remains high on the new machine. Visit Type: Telehealth Video Video Type: [facility] Patient Location: Home Location of Provider: Home Patient agrees and consents to this telehealth visit type: Yes Patient agrees to have their insurance billed: Yes Time Spent with Patient (minutes): 15 Provider Statement: I spent 100% of the Telehealth Video Call with the patient with greater than 50% spent counseling the patient and coordination of care.
== END 2019-10-08 15:48 | disposition home or self-care (01) ==
LOC: SC 15:47
PROVIDERS: ATTEND Internal Medicine Pulmonary Disease
DX: G47.33 Obstructive sleep apnea (adult) (pediatric) (principal)

== ENCOUNTER 2019-10-24 08:00 | Outpatient (CLI) | payer MEDICARE, BC | END 2019-10-24 23:59 | disposition home or self-care (01) | LOC: LAB.WCP 08:00 | PROVIDERS: ATTEND Family Medicine | DX: I63.9 Cerebral infarction, unspecified (principal); Z79.01 Long term (current) use of anticoagulants ==

== ENCOUNTER 2019-11-21 08:00 | Outpatient (CLI) | payer MEDICARE, BC | END 2019-11-21 23:59 | disposition home or self-care (01) | LOC: LAB.WCP 08:00 | PROVIDERS: ATTEND Family Medicine | DX: I63.9 Cerebral infarction, unspecified (principal); Z79.01 Long term (current) use of anticoagulants; G45.9 Transient cerebral ischemic attack, unspecified ==

== ENCOUNTER 2019-12-08 14:32 | Outpatient (CLI) | payer MEDICARE, BC ==
--- NOTE | 2019-12-08 15:53 | Ultrasound Report ---
PROCEDURE: Duplex Ext Veins Left INDICATIONS: SWELLING OF L LEG TECHNIQUE: Real-time imaging, as well as color and pulse Doppler interrogation, were performed of the lower extr emity deep veins from the inguinal ligament to the popliteal fossa. COMPARISON: None. FINDINGS: The deep veins are normally compressible, and free of intraluminal thrombus. Color and pu lse Doppler demonstrate normal phasic intraluminal flow. There is normal augmentation response to di stal compression maneuver. 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 IMPRESSION: 1. Negative left lower extremity duplex ultrasound for DVT. 2. Salinas's cyst. Reviewed by: Salo Nguyễn MD on 12/08/2019 2:51 PM CARLITA Approved by: Salo Nguyễn MD on 12/08/2019 2:51 PM CARLITA Station ID: [id number]
== END 2019-12-08 14:33 | disposition home or self-care (01) ==
LOC: DI 14:32
PROVIDERS: ATTEND Nurse Practitioner Family
DX: M71.22 Synovial cyst of popliteal space [Baker], left knee (principal)

== ENCOUNTER 2019-12-20 08:00 | Outpatient (CLI) | payer MEDICARE, BC | END 2019-12-20 23:59 | disposition home or self-care (01) | LOC: LAB.WCP 08:00 | PROVIDERS: ATTEND Family Medicine | DX: I63.9 Cerebral infarction, unspecified (principal); G45.9 Transient cerebral ischemic attack, unspecified; Z79.01 Long term (current) use of anticoagulants ==

== ENCOUNTER 2019-12-23 11:25 | Outpatient (CLI) | payer MEDICARE, BC ==
[2019-12-23 12:24] VITALS: BP 154/70
--- NOTE | 2019-12-23 12:24 | SLEEP CARE CONSULTATION ---
Information from patient questionnaire entered by Holly Faith. I have reviewed and concur with the information entered by Holly Faith. This document represents the service I personally performed and the decisions made by me, Jennifer Díaz, RN, MSN, EDUCATIONAL ADMINISTRATOR. History of Present Illness Service Date and Time: 12/23/2019 1125 Previous diagnosis: Moderate, Obstructive Sleep Apnea-Hypopnea Syndrome AHI: 19.8 (in 2014) Reason for follow up: first compliance after device update Equipment type: CPAP Equipment obtained from: [employer] (no supplies since new loaner Dreamstation given - delay in getting a new device) Mask style: Full face Backup mask available: No (keep current mask when replaced for a spare ) Last cushion change: 2 months - contacted [employer] today for supplies Prior sleep studies: Yes Year and Where: 2014 - [facility] Sleep Type of Sleep Study: Polysomnography CPAP Compliance Data - Data Reviewed with Patient Average duration of nightly device use: 7.75 Compliance rate %: 100 Current pressure setting (cmH2O): 6-12 Humidity settin Heated hose settin Average residual AHI: 12.0 Central apnea: 2.7 Obstructive apnea: 2.0 Hypopnea: 7.4 Average large leak: 24 min 56 sec Subjective Patient concerns: reports: dry mouth, nose, throat (not present with current machine), other (spouse notices patient struggling for air when he sleeps on his back so she has him sleep supine. ). denies: aerophagia, mask discomfort, air blowing in eyes, mask leak noise, condensation in mask/hose, nasal congestion (but has post nasal drainage chronically with some benefit from Flonase), epistaxis Observed to snore while using device: No Current pressure setting perceived as: comfortable (uses ramp) On therapy, patient: reports: sleeping better, awakening more refreshed, being more awake and alert during the day, more rested overall. denies: drowsiness while driving Initial [place] Sleepiness Scale score: 6 (in 2014) Current [place] Sleepiness Scale score: 8 Allergies and Home Medications Known drug allergies: No Home medication list reviewed: No (increased lisinopril to bid, amlodipine 2.5mg daily) Review of Systems Review of systems same as previous: No (blood pressure elevation with medications adjusted) Physical Exam Blood Pressure: 154/70 Cuff size: long Heart Rate: 55 O2 Saturation: 98 Height: 5 ft 9 in Weight: 191 lb Body Mass Index: 28.2 BMI Classification: Overweight Impression and Plan 1. Obstructive Sleep Apnea-Hypopnea Syndrome, mild, with good treatment compliance and mild elevation of residual AHI. On CPAP therapy, the patient has better sleep quality and is more rested overall. The past pressure increase to [id number] reduced residual AHI from 19 to 12. Thus further modification is needed. I will adjust further to to autoCPAP 9-15 cmH20 For elevation of residual AHI and supine apnea witness by spouse. Patient advised to contact me if pressure change is uncomfortable so that it can be adjusted. Goals for apnea control discussed. I will also order a manual titration study to find optimal treatment pressure as noted in last visit. Weight loss discussed and normal BMI - his goal is to 175 pounds. Currently patients BMI is 28.5 obesity class. Obesity increases the risk of apnea, CPAP pressure A diet consultation can be helpful in achieving optimal weight loss goals. The BMI chart was reviewed. The patient would like to reduce to 175 pounds bringing their BMI down to about 25. Patient encouraged to discuss their weight loss goals with their PCP and consider a referral to a hospital internship. The patient's CPAP pressure range should accommodate some weight loss. Symptoms to report for additional pressure adjustment discussed. Patient's apnea severity and rationale for treatment to reduce apnea, improve sleep quality and reduce cardiovascular and cerebrovascular events was reviewed. I also reviewed the benefit of consistent device use of CPAP for hypertension. * Change auto CPAP pressure to 9-15 cmH2O * Schedule manual titration * Notify me if snoring with mask or feeling that the pressure is too much or too little * Attempt to lose weight * Call this office if any problems using CPAP * Return for follow up after titration study , or sooner if concerns arise Visit Type: In Office Time Spent with Patient (minutes): 33 Provider Statement: I spent 100% of the Face to Face Visit with the patient with greater than 50% spent counseling the patient and coordination of care.
== END 2019-12-23 11:26 | disposition home or self-care (01) ==
LOC: SC 11:25
PROVIDERS: ATTEND Nurse Practitioner Family
DX: G47.33 Obstructive sleep apnea (adult) (pediatric) (principal); E66.3 Overweight; Z68.28 Body mass index [BMI] 28.0-28.9, adult
CPT/HCPCS: 99214; G0463; 99212

== ENCOUNTER 2020-01-28 13:47 | Outpatient (CLI) | payer MEDICARE, BC ==
--- NOTE | 2020-01-28 14:35 | SLEEP CARE CONSULTATION ---
Information from patient questionnaire entered by Sanjeev Lay. I have reviewed and concur with the information entered by Sanjeev Lay. This document represents the service I personally performed and the decisions made by , Harper Colin ARNP. History of Present Illness Service Date and Time: 01/28/2020 1347 Initial [place] Sleepiness Scale score: 6 (in 2015) Current [place] Sleepiness Scale score: 7 Additional HPI information: PADDY ABBOTT retruns for follow up of the sleep study with a manual CPAP titration study performed on 01-01-20. The patient was informed of the following polysomnography findings: He was started at 7 cm H2O and titrated up to 14 cm H2O which appeared to be optimal with an AHI of 3.5 per hour. He also had severe periodic leg movement that was contributing to the sleep fragmentation. I explained that the optimal CPAP pressure is 14 cm H2O with residual AHI 3.5. He tells me that his states the noises he was making when he slept has improved with the new [employer] full face mask. He recently was seen by his doctor for a sore in his nose that he treated with Mupirocin for 10 days and it is mostly resolved now. He states he has trouble with dry mouth intermittently, nothing concerning. Sleep Study - Results Type of Sleep Study: Polysomnography (Titration) Prior sleep studies: Yes Year and Where: 2014 - [facility] Sleep Polysomnography/Home Sleep Study results: IMPRESSION: The quality of the study is good. CPAP was initiated at 7 cmH2O and titrated up to CPAP at 14 cmH2O. CPAP at 14 cmH2O appeared to be optimal (AHI of 3.5 per hour on the pressure). There was supine sleep on the pressure. Oxygen saturation was mildly low due to the frequent residual respiratory events on lower CPAP settings. The patient appeared to have some difficulty tolerating positive airway pressure therapy. The patients sleep efficiency was poor as there were frequent prolonged awakenings throughout the night.. The sleep architecture was abnormal for sleep fragmentation and lack of REM and slow wave sleep (N3). There was severe periodic leg movement of sleep contributing to the sleep fragmentation.. Cardiac rhythm was normal sinus rhythm without significant arrhythmia. QRS has bundle branch block pattern. No abnormal behavior (parasomnia) observed during the night. CONCLUSIONS and RECOMMENDATIONS: 1. Obstructive sleep apnea-hypopnea (ICD-10 G47.33), moderate (AHI was 19.8), adequately controlled with CPAP at 14 cmH2O. CPAP therapy is, therefore, recommended at the pressure setting. AutoCPAP set between 10 and 15 cmH20 is also appropriate. Mask used was a Respironics Amanda full face mask size large. With BMI of 28.2 Kg/M2, weight loss is also recommended. 2. 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 Clinical correlation advised. - Discussion Sleep Study discussion: Patient brought in his compliance information on the chip from his machine. He has an average AHI of 6.2. His 90% mean pressure is at 10.7 cm H2O and average large leaks were 21 minutes. He was compliant with use 96.7% during the last 30 days. He obtained last supplies from [employer]. He states the mask and pressures are comfortable without leaking noises or morning burping. Allergies and Home Medications Drug allergies reviewed: Yes (NKDA) Home medication list reviewed: Yes (increased lisinopril to 40 mg daily and added amlodipine) Review of Systems Review of systems same as previous: Yes (having some dizziness which his PCP is addressing and referred to Neurology) Physical Exam Heart Rate: 56 O2 Saturation: 98 Height: 5 ft 9 in Weight: 188 lb 9.6 oz Body Mass Index: 27.8 BMI Classification: Overweight Impression and Plan 1. Obstructive Sleep Apnea-Hypopnea Syndrome, moderate (AHI 19.8), with good treatment compliance and fair apnea control, but has elevated residual AHI at 6.2. I will adjust pressure to 12-15 cm H2O to try and decrease the AHI. On CPAP therapy, there is improved sleep quality and feels more rested overall. Patient's apnea severity and rationale for treatment to reduce apnea, improve sleep quality and reduce cardiovascular and cerebrovascular events was reviewed. I also reviewed the benefit of consistent device use of CPAP for hypertension, cardiac disease, cerebrovascular disease, and arrhythmias. 2. Periodic leg movement, severe, that contributed to sleep fragmentation. Periodic limb movement of sleep (PLMS) is characterized by episodes of repetitive limb movements that occur during sleep and usually involve the lower limbs. The etiology is unknown but can be associated with restless leg syndrome (RLS), neuropathy, spinal cord diseases, kidney disease, rheumatological disorders, narcolepsy, obstructive sleep apnea, and REM sleep behavior disorder. Other factors that can increase PLMS and/or RLS are heredity and iron deficiency as reflected by a low serum ferritin level below 50 to 75mcg / L. Several medications can precipitate or aggravate PLMS such as selective serotonin re- uptake inhibitor antidepressants, tricyclic antidepressants, lithium, and d opamine receptor antagonists with the exception of bupropion. Caffeine can also aggravate PLMS and should be avoided. Sleep hygiene methods can also improve sleep as well as lifestyle changes such as regular exercise. Patient was advised to follow up with his PCP for further evaluation if indicated. Change auto CPAP pressure at 12-15 cm H2O. Notify me if snoring with the mask or feeling that the pressure is too much or too little. Follow up with PCP for further evaluation of his severe periodic leg movement Attempt to lose weight. Return for follow-up in 1-2 months, or sooner if concerns arise. Visit Type: In Office Time Spent with Patient (minutes): 23 Provider Statement: I spent 100% of the Face to Face Visit with the patient with greater than 50% spent counseling the patient and coordination of care.
== END 2020-01-28 13:48 | disposition home or self-care (01) ==
LOC: SC 13:47
PROVIDERS: ATTEND Nurse Practitioner Family
DX: G47.33 Obstructive sleep apnea (adult) (pediatric) (principal); G47.61 Periodic limb movement disorder; E66.3 Overweight; Z68.27 Body mass index [BMI] 27.0-27.9, adult
CPT/HCPCS: 99213; G0463; 99212

== ENCOUNTER 2020-02-14 08:00 | Outpatient (CLI) | payer MEDICARE, BC | END 2020-02-14 23:59 | disposition home or self-care (01) | LOC: LAB.WCP 08:00 | PROVIDERS: ATTEND Family Medicine | DX: I63.9 Cerebral infarction, unspecified (principal); Z79.01 Long term (current) use of anticoagulants; G45.9 Transient cerebral ischemic attack, unspecified ==

== ENCOUNTER 2020-02-28 13:07 | Outpatient (CLI) | payer MEDICARE, BC ==
--- NOTE | 2020-02-28 13:52 | SLEEP CARE CONSULTATION ---
Information from patient questionnaire entered by Sanjeev Lay. I have reviewed and concur with the information entered by Sanjeev Lay. This document represents the service I personally performed and the decisions made by me, Harper Colin ARNP. History of Present Illness Service Date and Time: 02/28/2020 1307 Previous diagnosis: Moderate, Obstructive Sleep Apnea-Hypopnea Syndrome AHI: 19.8 Reason for follow up: one month (Followup pressure change) Equipment type: CPAP Equipment obtained from: [employer] (getting supplies as needed) Mask style: Full face Mask brand: Respironics (Amanda view full face) Backup mask available: Yes (old mask) Last cushion change: 3+ weeks ago Prior sleep studies: Yes Year and Where: 2014 - [facility] Type of Sleep Study: Polysomnography HPI additional information: PADDY ABBOTT was diagnosed to have moderate, AHI 19.8, obstructive sleep apnea- hypopnea syndrome and returned today for CPAP therapy one month post pressure change follow-up. Sleep Study - Results Prior sleep studies: Yes Year and Where: 2014 - [facility] CPAP Compliance Data - Data Reviewed with Patient Average duration of nightly device use: 7 h 25 min Compliance rate %: 100 Current pressure setting (cmH2O): 12-15 Humidity settin Heated hose settin Average residual AHI: 6.1 Average large leak: 8 min 12 sec Compliance data discussion: He is using a CPAP pillow to use that is help with mask leaks and comfort of mas k fitting. He had one night when the pressure felt high. He tried to adjust his full face mask but it "blew it off". He traded back to a nasal cushion mask but this also came off due to pressure. He ended up putting the Amanda full face mask back on and adjusting the straps snugly and it stayed on. He did not have that issue any other night and states the pressure does not feel too low or high. He will use the ramp feature if the pressure feels high when putting mask on at first. Subjective Patient concerns: reports: air blowing in eyes (once in a while from vent holes and hits forehead), mask leak noise (until gets mask adjusted to face, then goes away), dry mouth, nose, throat (once in a while, better than he used to with the full face mask and increasing humidity). denies: aerophagia, mask discomfort (snug due to tightening of headgear), condensation in mask/hose, nasal congestion, epistaxis, other Observed to snore while using device: No Current pressure setting perceived as: comfortable On therapy, patient: reports: sleeping better, awakening more refreshed, being more awake and alert during the day, more rested overall. denies: drowsiness while driving Initial Uriah Sleepiness Scale score: 6 (in 2015) Current Uriah Sleepiness Scale score: 6 Allergies and Home Medications Drug allergies reviewed: Yes (NKDA) Home medication list reviewed: Yes (added Mupirocin 2% left ear canal and left nostril 3 x daily) Review of Systems Review of systems same as previous: Yes (Appt to see a neurologist) Physical Exam Heart Rate: 56 O2 Saturation: 97 Height: 5 ft 9 in Weight: 191 lb Body Mass Index: 28.2 BMI Classification: Overweight Impression and Plan 1. Obstructive Sleep Apnea-Hypopnea Syndrome, moderate, with good treatment compliance and fair apnea control, but has elevated residual AHI at 6.1. On CPAP therapy, there is improved sleep quality and feels more rested overall. I reviewed his titration study that found he had good apnea control at 14 cm H2O at 3.5 AHI during the study. His last visit his average AHI was 6.2 and his pressure was increased to 12-15 cm H2O. I will change to 12-16 cm H2O to try to reduce average apnea index. Patient's apnea severity and rationale for treatment to reduce apnea, improve sleep quality and reduce cardiovascular and cerebrovascular events was reviewed. I also reviewed the benefit of consistent device use of CPAP for hypertension, cardiac disease, cerebrovascular disease, and arrhythmia. * Change autoCPAP pressure to 12-16 cmH2O * Notify me if snoring with mask or feeling that the pressure is too much or too little * Attempt to lose weight * Call this office if any problems using CPAP * Return for follow up in 1 month, or sooner if concerns arise Visit Type: In Office Time Spent with Patient (minutes): 25 Provider Statement: I spent 100% of the Face to Face Visit with the patient with greater than 50% spent counseling the patient and coordination of care.
== END 2020-02-28 13:08 | disposition home or self-care (01) ==
LOC: SC 13:07
PROVIDERS: ATTEND Nurse Practitioner Family
DX: G47.33 Obstructive sleep apnea (adult) (pediatric) (principal); E66.3 Overweight; Z68.28 Body mass index [BMI] 28.0-28.9, adult
CPT/HCPCS: 99213; G0463; 99212

== ENCOUNTER 2020-03-13 08:00 | Outpatient (CLI) | payer MEDICARE, BC | END 2020-03-13 23:59 | disposition home or self-care (01) | LOC: LAB.WCP 08:00 | PROVIDERS: ATTEND Family Medicine | DX: Z79.01 Long term (current) use of anticoagulants (principal) ==

== ENCOUNTER 2020-04-10 08:00 | Outpatient (CLI) | payer MEDICARE, BC | END 2020-04-10 23:59 | disposition home or self-care (01) | LOC: LAB.WCP 08:00 | PROVIDERS: ATTEND Family Medicine | DX: Z79.01 Long term (current) use of anticoagulants (principal) ==

== ENCOUNTER 2020-04-13 12:51 | Outpatient (CLI) | payer MEDICARE, BC ==
--- NOTE | 2020-04-13 13:30 | SLEEP CARE CONSULTATION ---
Information from patient questionnaire entered by Holly Faith. I have reviewed and concur with the information entered by Holly Faith. This document represents the service I personally performed and the decisions made by , Harper Colin ARNP. History of Present Illness Service Date and Time: 04/13/2020 1251 Previous diagnosis: Moderate, Obstructive Sleep Apnea-Hypopnea Syndrome AHI: 19.8 (in 2014) Reason for follow up: one month (with pressure change) Equipment type: CPAP Equipment obtained from: [employer] (getting supplies as needed) Mask style: Full face Backup mask available: Yes (extra mask) Last cushion change: 6 weeks Prior sleep studies: Yes Year and Where: 2014 - [facility] HPI additional information: PADDY ABBOTT was diagnosed to have moderate, AHI 19.8, obstructive sleep apnea- hypopnea syndrome and returned today for CPAP therapy one month pressure change follow-up. Sleep Study - Results Prior sleep studies: Yes Year and Where: 2014 - [facility] CPAP Compliance Data - Data Reviewed with Patient Average duration of nightly device use: 7.45 Compliance rate %: 100 Current pressure setting (cmH2O): 12-16 Humidity settin Heated hose settin Average residual AHI: 4.4 Central apnea: 0.3 Obstructive apnea: 2.0 Average large leak: 4 min 26 sec Subjective Patient concerns: reports: air blowing in eyes (just when trying to put on and adjusted), mask leak noise (needs adjustment and resolves), dry mouth, nose, throat (dry mouth, not every night, adjust humidity; uses Biotene or Xylomelts as needed), other (using a CPAP pillow). denies: aerophagia, mask discomfort, condensation in mask/hose, nasal congestion, epistaxis Observed to snore while using device: No Current pressure setting perceived as: comfortable On therapy, patient: reports: sleeping better, awakening more refreshed, being more awake and alert during the day, more rested overall. denies: drowsiness while driving Initial [place] Sleepiness Scale score: 6 (in 2014) Current [place] Sleepiness Scale score: 5 Allergies and Home Medications Drug allergies reviewed: Yes (NKDA) Home medication list reviewed: Yes (no changes) Review of Systems Review of systems same as previous: Yes (no changes) Physical Exam Heart Rate: 56 O2 Saturation: 98 Height: 5 ft 9 in Weight: 190 lb Body Mass Index: 28.0 BMI Classification: Overweight Impression and Plan 1. Obstructive Sleep Apnea-Hypopnea Syndrome, moderate, with good treatment compliance and fair apnea control. On CPAP therapy, the patient has better sleep quality and is more rested overall. His residual apnea is now 4.4 with the last pressure change and I will continue this pressure at this time. He is having some mask issues, but likes the full face mask he has been using since the sleep study and is waiting for new supplies to get him a new cushion. He is comfortable with the CPAP but would like to follow up in a few months to make sure things are still going well with good apnea control. Patient's apnea severity and rationale for treatment to reduce apnea, improve sleep quality and reduce cardiovascular and cerebrovascular events was reviewed. I also reviewed the benefit of consistent device use of CPAP for hypertension, cardiac disease, and arrhythmia. * Continue autoCPAP pressure at 12-16 cmH2O * Notify me if snoring with mask or feeling that the pressure is too much or too little * Attempt to lose weight * Call this office if any problems using CPAP * Return for follow up in 3 months, or sooner if concerns arise Counseling Topics: Spare mask, Weight loss health impact Visit Type: In Office Other Participants: Spouse/Significant Other Time Spent with Patient (minutes): 20 Provider Statement: I spent 100% of the Face to Face Visit with the patient with greater than 50% spent counseling the patient and coordination of care.
== END 2020-04-13 12:52 | disposition home or self-care (01) ==
LOC: SC 12:51
PROVIDERS: ATTEND Nurse Practitioner Family
DX: G47.33 Obstructive sleep apnea (adult) (pediatric) (principal); E66.3 Overweight; Z68.28 Body mass index [BMI] 28.0-28.9, adult
CPT/HCPCS: 99212; G0463

== ENCOUNTER 2020-05-11 08:00 | Outpatient (CLI) | payer MEDICARE, BC | END 2020-05-11 23:59 | disposition home or self-care (01) | LOC: LAB.WCP 08:00 | PROVIDERS: ATTEND Family Medicine | DX: Z79.01 Long term (current) use of anticoagulants (principal) ==

== ENCOUNTER 2020-05-18 | Outpatient (CLI) | payer MEDICARE, BC ==
--- OUTSIDE RECORDS SUMMARY | 2020-06-24 00:01 | EXTERNAL MEDICAL SUMMARY RPT | Continuity of Care Document ---
: Demographics Phone Unavailable Preferred Language Lithuanian Marital Status Unknown Hindu Affiliation Unknown Race Unknown Ethnic Group Unknown Author Organization [place] Address [address] [place] [address] Phone Care Team Providers Name Role Phone Danny RAE, Juventino Unavailable Carl RAE, Juventino Unavailable Carl Artis Unavailable Unavailable Danny Laboy Unavailable Unavailable Problems date description facility 2020-03-05 11:30 UNSPECIFIED ABNORMALITIES OF [facility] GAIT AND MOBILITY 2020-03-13 08:00 SHELTER (CURRENT) USE OF [facility] ANTICOAGULANTS 2020-04-10 08:00 SHELTER (CURRENT) USE OF [facility] ANTICOAGULANTS 2020-05-11 08:00 SHELTER (CURRENT) USE OF 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 [facility] 2020-05-12 00:00:00 Alcohol intake [facility] 2020-05-12 00:00:00 Health-related behavior [facility] Primary [facility] 2020-05-12 00:00:00 Foot callus [facility] 2020-05-12 00:00:00 [facility] use [facility] 2020-05-12 00:00:00 Exercise [facility] 2020-05-12 00:00:00 Replacement of aortic valve [facility] Primary Care [facility] 2020-05-12 00:00:00 Details of drug misuse behavior [facility] Primary [facility] 2020-05-12 00:00:00 Alcohol use [facility] 2020-05-12 00:00:00 Tobacco smoking status [facility] 2020-05-12 00:00:00 [facility] 2020-05-18 08:00 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 Allergies date description facility NO KNOWN ENVIRONMENTAL ALLERGIES [facility] NO KNOWN ALLERGIES [facility] No Known Drug Allergies [facility] PENICILLINS [facility] No Known Drug Allergies [facility] Medications date description facility 2020-05-12 00:00:00 null [facility] 2020-05-12 00:00:00 null [facility] 2020-05-12 00:00:00 null [facility] 2020-05-12 00:00:00 null [facility] 2020-05-12 00:00:00 null [facility] 2020-05-12 00:00:00 null [facility] 2020-05-12 00:00:00 null [facility] 2020-05-12 00:00:00 null [facility] 2020-05-12 00:00:00 null [facility] 2020-05-12 00:00:00 null [facility] 2020-05-12 00:00:00 null [facility] 2020-05-12 00:00:00 null [facility] 2020-05-12 00:00:00 [facility]NAFIL [facility] 2020-05-12 00:00:00 CLOBETASOL PROPIONATE [facility] 2020-05-12 00:00:00 CLOBETASOL PROPIONATE [facility] 2020-05-12 00:00:00 AMMONIUM LACTATE LOTN [facility] 2020-05-12 00:00:00 PSYLLIUM PACK [facility] 2020-05-12 00:00:00 KETOCONAZOLE [facility] 2020-05-12 00:00:00 KETOCONAZOLE [facility] 2020-05-12 00:00:00 SILDENAFIL CITRATE [facility] 2020-05-12 00:00:00 CLOBETASOL PROPIONATE [facility] 2020-05-12 00:00:00 CLOBETASOL PROPIONATE [facility] Procedures date description facility 2020-04-10 00:00:00 POC PROTHROMBIN TIME [facility] date description facility 2020-04-10 00:00:00 ANTICOAG MGMT PT WARFARIN [facility] date description facility 2020-04-10 00:00:00 [facility] date description facility 2020-04-10 00:00:00 POC PROTHROMBIN TIME [facility] date description facility 2020-04-10 00:00:00 ANTICOAG MGMT PT WARFARIN [facility] date description facility 2020-04-10 00:00:00 [facility] date description facility 2020-05-11 00:00:00 POC PROTHROMBIN TIME [facility] date description facility 2020-05-11 00:00:00 ANTICOAG MGMT PT WARFARIN [facility] date description facility 2020-05-11 00:00:00 [facility] date description facility 2020-05-11 00:00:00 POC PROTHROMBIN TIME [facility] date description facility 2020-05-11 00:00:00 ANTICOAG MGMT PT WARFARIN [facility] date description facility 2020-05-11 00:00:00 [facility] date description facility 2020-05-18 00:00:00 POC PROTHROMBIN TIME [facility] date description facility 2020-05-18 00:00:00 ANTICOAG MGMT PT WARFARIN [facility] date description facility 2020-05-18 00:00:00 [facility] date description facility 2020-06-01 00:00:00 POC PR[facility]HROMBIN TIME [facility] date description facility 2020-06-01 00:00:00 ANTICOAG MGMT PT WARFARIN [facility] date description facility 2020-06-01 00:00:00 [facility] Results test status date ordered by attending specimen nelly e international_no unknown 2020-04-10 unknown unknown unkno wn rmalized_ratio_IN 00:00:00 R_ INR_in_Platelet_ unknown 2020-04-10 unknown unknown unkno wn poor_plasma_by_Co 00:00:00 agulation_assay international_no unknown 2020-05-11 unknown unknown unkno wn rmalized_ratio_IN 00:00:00 R_ INR_in_Platelet_ unknown 2020-05-11 unknown unknown unkno wn poor_plasma_by_Co 00:00:00 agulation_assay international_no unknown 2020-05-11 unknown unknown unkno wn rmalized_ratio_IN 00:00:00 R_ INR_in_Platelet_ unknown 2020-05-11 unknown unknown unkno wn poor_plasma_by_Co 00:00:00 agulation_assay international_no unknown 2020-05-18 unknown unknown unkno wn rmalized_ratio_IN 00:00:00 R_ INR_in_Platelet_ unknown 2020-05-18 unknown unknown unkno wn poor_plasma_by_Co 00:00:00 agulation_assay international_no unknown 2020-06-01 unknown unknown unkno wn rmalized_ratio_IN 00:00:00 R_ INR_in_Platelet_ unknown 2020-06-01 unknown unknown unkno wn poor_plasma_by_Co 00:00:00 agulation_assay facility observation status value reference units lab abnor mal line range code notes [facility] unknown 2.7 unknown _309 unknown unknown Primary Care l_normalized_ [facility] ratio_INR_ [facility] INR_in_Plate unknown 2.7 unknown _6301 unknown unknown Primary Care let_poor_plas -6 [facility] ma_by_Coagula tion_assay [facility] unknown 3.3 unknown _309 unknown unknown Primary Care l_normalized_ [facility] ratio_INR_ [facility] INR_in_Plate unknown 3.3 unknown _6301 unknown unknown Primary Care let_poor_plas -6 [facility] ma_by_Coagula tion_assay [facility] unknown 3.3 unknown _309 unknown unknown Primary Care l_normalized_ [facility] ratio_INR_ [facility] INR_in_Plate unknown 3.3 unknown _6301 unknown unknown Primary Care let_poor_plas -6 [facility] ma_by_Coagula tion_assay [facility] 2.3 unknown _309 unknown unknown Primary Care l_normalized_ [facility] ratio_INR_ [facility] INR_in_Plate unknown 2.3 unknown _6301 unknown unknown Primary Care let_poor_plas -6 [facility] ma_by_Coagula tion_assay [facility] unknown 2.6 unknown _309 unknown unknown Primary Care l_normalized_ [facility] ratio_INR_ [facility] INR_in_Plate unknown 2.6 unknown _6301 unknown unknown Primary Care let_poor_plas -6 [facility] ma_by_Coagula tion_assay Social History date description facility 2020-05-12 00:00:00 Former smoker [facility] Social History date description facility 2020-05-12 00:00:00 Former smoker [facility] date description facility [phone]
== END 2020-05-18 23:59 | disposition home or self-care (01) ==
DX: Z79.01 Long term (current) use of anticoagulants (principal)

== ENCOUNTER 2020-07-03 08:00 | Outpatient (CLI) | payer MEDICARE, BC | END 2020-07-03 23:59 | disposition home or self-care (01) | LOC: LAB.WCP 08:00 | PROVIDERS: ATTEND Family Medicine | DX: Z53.9 Procedure and treatment not carried out, unspecified reason (principal); Z79.01 Long term (current) use of anticoagulants ==

== ENCOUNTER 2020-07-15 10:56 | Outpatient (CLI) | payer MEDICARE, BC ==
--- NOTE | 2020-07-15 11:34 | SLEEP CARE CONSULTATION ---
Information from patient questionnaire entered by Holly Faith. I have reviewed and concur with the information entered by Holly Faith. This document represents the service I personally performed and the decisions made by , Harper Colin ARNP. History of Present Illness Service Date and Time: 07/15/2020 1056 Previous diagnosis: Moderate, Obstructive Sleep Apnea-Hypopnea Syndrome AHI: 19.8 (in 2014) Reason for follow up: three month Equipment type: CPAP Equipment obtained from: [employer] (getting supplies as needed) Mask style: Full face Backup mask available: Yes (old mask) Last cushion change: 2 days ago Prior sleep [facility]: Yes [facility] HPI additional information: PADDY ABBOTT was diagnosed to have moderate, AHI 19.8, obstructive sleep apnea- hypopnea syndrome and returned today for CPAP therapy three month follow-up. CPAP Compliance Data - Data Reviewed with Patient Average duration of nightly device use: 7 hr 24 min Compliance rate %: 97.8 (90 days) Current pressure setting (cmH2O): 12-16 Humidity settin Heated hose settin Average residual AHI: 6.0 Average large leak: 5 min 8 sec Subjective Patient concerns: reports: mask leak noise (adjustment helps), dry mouth, nose, throat (has chronic issue and does use Biotene products). denies: aerophagia, mask discomfort, air blowing in eyes, condensation in mask/hose, nasal congestion, epistaxis, other Observed to snore while using device: No Current pressure setting perceived as: comfortable On therapy, patient: reports: sleeping better, awakening more refreshed, being more awake and alert during the day, more rested overall. denies: drowsiness while driving Initial [place] Sleepiness Scale score: 6 (in 2015) Current [place] Sleepiness Scale score: 3 Allergies and Home Medications Drug allergies reviewed: Yes (NKDA) Home medication list reviewed: Yes (Covid vaccine 2 weeks ago) Allergy and home medication list: Amlodipine Clobetasol Diclofenac Fluticasone HCTZ Lisinopril Omeprazole Simvastatin Viagra Warfarin Amlactin Biotene Metamucil Neilmed Vitamin B12 Acetaminophen, prn Review of Systems Review of systems same as previous: Yes (no changes) Physical Exam Heart Rate: 59 O2 Saturation: 98 Height: 5 ft 9 in Weight: 191 lb Body Mass Index: 28.2 BMI Classification: Overweight Impression and Plan 1. Obstructive Sleep Apnea-Hypopnea Syndrome, moderate, with good treatment compliance and fair apnea control with elevated residual AHI. On CPAP therapy, the patient has better sleep quality and is more rested overall. The patients pressure will be changed to autoCPAP 13-15 cmH20 for elevation of residual AHI. Patient advised to contact me if pressure change is uncomfortable so that it can be adjusted. Goals for apnea control discussed. He has been waking up with dry mouth. He states he already uses Biotene products for dry mouth. His humidity is set at 4 and so is his heated hose. Oral dryness can be reduced by adjusting humidity setting higher or heated hose lower or by adjusting both settings. He was advised to reduce his heated hose from 4 to 3. He voiced understanding. Patient's apnea severity and rationale for treatment to reduce apnea, improve sleep quality and reduce cardiovascular and cerebrovascular events was reviewed. I also reviewed the benefit of consistent device use of CPAP for hypertension, cardiac disease, and arrhythmia. * Change autoCPAP pressure to 13-15 cmH2O * Notify me if snoring with mask or feeling that the pressure is too much or too little * Call this office if any problems using CPAP * Return for follow up in 6 months, or sooner if concerns arise Counseling Topics: Spare mask Visit Type: In Office Time Spent with Patient (minutes): 24 Provider Statement: I spent 100% of the Face to Face Visit with the patient with greater than 50% spent counseling the patient and coordination of care.
== END 2020-07-15 10:57 | disposition home or self-care (01) ==
LOC: SC 10:56
PROVIDERS: ATTEND Nurse Practitioner Family
DX: G47.33 Obstructive sleep apnea (adult) (pediatric) (principal); E66.3 Overweight; Z68.28 Body mass index [BMI] 28.0-28.9, adult
CPT/HCPCS: 99213; G0463; 99212

== ENCOUNTER 2020-08-07 08:00 | Outpatient (CLI) | payer MEDICARE, BC | END 2020-08-07 23:59 | disposition home or self-care (01) | LOC: LAB.WCP 08:00 | PROVIDERS: ATTEND Family Medicine | DX: Z95.2 Presence of prosthetic heart valve (principal); Z79.01 Long term (current) use of anticoagulants ==

== ENCOUNTER 2020-09-02 08:00 | Outpatient (CLI) | payer MEDICARE, BC | END 2020-09-02 23:59 | disposition home or self-care (01) | LOC: LAB.WCP 08:00 | PROVIDERS: ATTEND Family Medicine | DX: Z95.2 Presence of prosthetic heart valve (principal) ==

== ENCOUNTER 2020-09-25 08:00 | Outpatient (CLI) | payer MEDICARE, BC | END 2020-09-25 23:59 | disposition home or self-care (01) | LOC: LAB.WCP 08:00 | PROVIDERS: ATTEND Family Medicine | DX: I63.9 Cerebral infarction, unspecified (principal); Z95.2 Presence of prosthetic heart valve; Z79.01 Long term (current) use of anticoagulants ==

== ENCOUNTER 2020-10-23 08:00 | Outpatient (CLI) | payer MEDICARE, BC | END 2020-10-23 23:59 | disposition home or self-care (01) | LOC: LAB.WCP 08:00 | PROVIDERS: ATTEND Family Medicine | DX: Z95.2 Presence of prosthetic heart valve (principal); Z79.01 Long term (current) use of anticoagulants; I63.9 Cerebral infarction, unspecified ==

== ENCOUNTER 2020-10-30 08:00 | Outpatient (CLI) | payer MEDICARE, BC ==
[2020-10-30 11:57] LABS: BASOPHILS # (AUTO) 0.1 10^3/uL (0.0-0.1); BASOPHILS % (AUTO) 0.8 %; EOSINOPHILS # (AUTO) 0.2 10^3/uL (0.0-0.7); EOSINOPHILS % (AUTO) 3.1 %; HCT - HEMATOCRIT 42.8 % (42.0-52.0); LYMPHOCYTES # (AUTO) 1.2 10^3/uL (1.5-3.5); LYMPHOCYTES % (AUTO) 19.2 %; MEAN CORPUSCULAR HEMOGLOBIN 30.8 pg (27.0-31.0); MEAN CORPUSCULAR HGB CONC 32.7 g/dL (32.0-36.0); MEAN CORPUSCULAR VOLUME 94.3 fL (80.0-94.0); MEAN PLATELET VOLUME 10.7 fL (7.4-11.4); MONOCYTES # (AUTO) 0.7 10^3/uL (0.0-1.0); MONOCYTES % (AUTO) 10.3 %; NEUTROPHILS # (AUTO) 4.2 10^3/uL (1.5-6.6); NEUTROPHILS % (AUTO) 66.1 %; PLT - PLATELET COUNT 201 10^3/uL (130-450); RED BLOOD COUNT 4.54 10^6/uL (4.70-6.10); RED CELL DISTRIBUTION WIDTH 13.3 % (12.0-15.0); WHITE BLOOD COUNT 6.4 x10^3/uL (4.8-10.8)
[2020-10-30 12:58] LABS: ALBUMIN 4.6 g/dL (3.2-5.5); ALBUMIN/GLOBULIN RATIO 1.5 (1.0-2.2); ALKALINE PHOSPHATASE 67 IU/L (42-121); ALT ALANINE AMINOTRANSFERASE 19 IU/L (10-60); AST ASPARTATE AMINOTRANSFERASE 24 IU/L (10-42); BILIRUBIN,TOTAL 1.6 mg/dL (0.2-1.0); BUN - BLOOD UREA NITROGEN 15 mg/dL (6-20); CALCIUM 9.9 mg/dL (8.5-10.3); CARBON DIOXIDE - CO2 29 mmol/L (21-32); CHLORIDE 101 mmol/L (101-111); CHOL/HDL RATIO 3.2 (<5.0); CHOLESTEROL 107 mg/dL; CREATININE 0.9 mg/dL (0.6-1.2); GFR - MDRD 81 (>89); GLUCOSE 107 mg/dL (70-100); HDL CHOLESTEROL 33 mg/dL; LDL CHOLESTEROL,CALCULATED 53 mg/dL; LDL/HDL RATIO 1.6 (<3.6); POTASSIUM 4.2 mmol/L (3.5-5.0); SODIUM 138 mmol/L (135-145); TOTAL PROTEIN 7.7 g/dL (6.7-8.2); TRIGLYCERIDES 107 mg/dL; VLDL CHOLESTEROL 21 mg/dL
[2020-10-30 13:13] LABS: THYROID STIMULATING HORMONE 3.26 uIU/mL (0.34-5.60)
== END 2020-10-30 23:59 | disposition home or self-care (01) ==
LOC: LAB.WCP 08:00
PROVIDERS: ATTEND Family Medicine
DX: I10 Essential (primary) hypertension (principal); Z95.2 Presence of prosthetic heart valve; E78.5 Hyperlipidemia, unspecified; R51.9 Headache, unspecified; Z12.5 Encounter for screening for malignant neoplasm of prostate
CPT/HCPCS: 36415; 80053; 80061; 82607; 84443; 85025; G0103; 83721; 84153

== ENCOUNTER 2020-11-20 08:00 | Outpatient (CLI) | payer MEDICARE, BC | END 2020-11-20 23:59 | disposition home or self-care (01) | LOC: LAB.WCP 08:00 | PROVIDERS: ATTEND Family Medicine | DX: I63.9 Cerebral infarction, unspecified (principal); Z95.2 Presence of prosthetic heart valve; Z79.01 Long term (current) use of anticoagulants; G45.9 Transient cerebral ischemic attack, unspecified ==

== ENCOUNTER 2020-12-18 08:00 | Outpatient (CLI) | payer MEDICARE, BC | END 2020-12-18 23:59 | disposition home or self-care (01) | LOC: LAB.WCP 08:00 | PROVIDERS: ATTEND Family Medicine | DX: I63.9 Cerebral infarction, unspecified (principal); Z95.2 Presence of prosthetic heart valve; Z79.01 Long term (current) use of anticoagulants; G45.9 Transient cerebral ischemic attack, unspecified ==

== ENCOUNTER 2021-02-12 08:00 | Outpatient (CLI) | payer MEDICARE, BC | END 2021-02-12 23:59 | disposition home or self-care (01) | LOC: LAB.WCP 08:00 | PROVIDERS: ATTEND Family Medicine | DX: I63.9 Cerebral infarction, unspecified (principal); G45.9 Transient cerebral ischemic attack, unspecified; Z95.2 Presence of prosthetic heart valve; Z79.01 Long term (current) use of anticoagulants ==

== ENCOUNTER 2021-03-26 08:00 | Outpatient (CLI) | payer MEDICARE, BC | END 2021-03-26 23:59 | disposition home or self-care (01) | LOC: LAB.WCP 08:00 | PROVIDERS: ATTEND Family Medicine | DX: I63.9 Cerebral infarction, unspecified (principal); G45.9 Transient cerebral ischemic attack, unspecified; Z95.2 Presence of prosthetic heart valve; Z79.01 Long term (current) use of anticoagulants ==

== ENCOUNTER 2021-04-09 08:00 | Outpatient (CLI) | payer MEDICARE, BC | END 2021-04-09 23:59 | disposition home or self-care (01) | LOC: LAB.WCP 08:00 | PROVIDERS: ATTEND Family Medicine | DX: Z95.2 Presence of prosthetic heart valve (principal); Z79.01 Long term (current) use of anticoagulants; I63.9 Cerebral infarction, unspecified; G45.9 Transient cerebral ischemic attack, unspecified ==

== ENCOUNTER 2021-05-14 08:00 | Outpatient (CLI) | payer MEDICARE, BC | END 2021-05-14 23:59 | disposition home or self-care (01) | LOC: LAB.WCP 08:00 | PROVIDERS: ATTEND Family Medicine | DX: I63.9 Cerebral infarction, unspecified (principal); Z95.2 Presence of prosthetic heart valve; Z79.01 Long term (current) use of anticoagulants; G45.9 Transient cerebral ischemic attack, unspecified ==

== ENCOUNTER 2021-05-21 08:00 | Outpatient (CLI) | payer MEDICARE, BC | END 2021-05-21 23:59 | disposition home or self-care (01) | LOC: LAB.N 08:00 | PROVIDERS: ATTEND Family Medicine | DX: G45.9 Transient cerebral ischemic attack, unspecified (principal); I63.9 Cerebral infarction, unspecified; Z95.2 Presence of prosthetic heart valve; Z79.01 Long term (current) use of anticoagulants ==

== ENCOUNTER 2021-05-28 08:00 | Outpatient (CLI) | payer MEDICARE, BC | END 2021-05-28 23:59 | disposition home or self-care (01) | LOC: LAB.N 08:00 | PROVIDERS: ATTEND Family Medicine | DX: G45.9 Transient cerebral ischemic attack, unspecified (principal); Z95.2 Presence of prosthetic heart valve; Z79.01 Long term (current) use of anticoagulants; I63.9 Cerebral infarction, unspecified ==

== ENCOUNTER 2021-06-14 08:00 | Outpatient (CLI) | payer MEDICARE, BC | END 2021-06-14 23:59 | disposition home or self-care (01) | LOC: LAB.N 08:00 | PROVIDERS: ATTEND Family Medicine | DX: Z95.2 Presence of prosthetic heart valve (principal); Z79.01 Long term (current) use of anticoagulants; I63.9 Cerebral infarction, unspecified; G45.9 Transient cerebral ischemic attack, unspecified ==

== ENCOUNTER 2021-07-05 08:00 | Outpatient (CLI) | payer MEDICARE, BC | END 2021-07-05 23:59 | disposition home or self-care (01) | LOC: LAB.N 08:00 | PROVIDERS: ATTEND Family Medicine | DX: I63.9 Cerebral infarction, unspecified (principal); G45.9 Transient cerebral ischemic attack, unspecified; Z95.2 Presence of prosthetic heart valve; Z79.01 Long term (current) use of anticoagulants ==

== ENCOUNTER 2021-07-21 10:35 | Outpatient (CLI) | payer MEDICARE, BC ==
[2021-07-21 11:10] VITALS: BP 156/75
--- NOTE | 2021-07-21 11:10 | SLEEP CARE CONSULTATION ---
Information from patient questionnaire entered by Masood Bai MA. I have reviewed and concur with the information entered by Masood Bai MA. This document represents the service I personally performed and the decisions made by , Harper Colin ARNP. History of Present Illness Service Date and Time: 07/21/2021 1035 Previous diagnosis: Moderate, Obstructive Sleep Apnea-Hypopnea Syndrome AHI: 19.8 (in 2014) Reason for follow up: annual (LAST SEEN 07/2020) Equipment type: CPAP Equipment obtained from: [facility] (getting supplies as needed) Mask style: Full face Backup mask available: Yes (old mask) Last cushion change: 9 days ago [facility] HPI additional information: PADDY ABBOTT was diagnosed to have moderate, AHI 19.8, obstructive sleep apnea- hypopnea syndrome and returned today with spouse for CPAP therapy annual follow- up. Sleep Study - Results Prior sleep studies: Yes Year and Where: 2014 - [facility] CPAP Compliance Data - Data Reviewed with Patient Average duration of nightly device use: 6 HOURS 43 MINUTES Compliance rate %: 94.5 Current pressure setting (cmH2O): 13-15 (avg 14.3, peak 14.5) Humidity settin Heated hose settin Average residual AHI: 5.9 Average large leak: 15 MINUTES 36 SECONDS Subjective Patient concerns: reports: aerophagia, air blowing in eyes, mask leak noise, dry mouth, nose, throat (occasionally), other (BLOATED) Observed to snore while using device: No Current pressure setting perceived as: too high On therapy, patient: reports: sleeping better, awakening more refreshed, being more awake and alert during the day, more rested overall. denies: drowsiness while driving Initial Elmo Sleepiness Scale score: 6 (in 2014) Current Elmo Sleepiness Scale score: 10 (2021) Allergies and Home Medications Drug allergies reviewed: Yes (NKDA) Home medication list reviewed: Yes (no changes) Allergy and home medication list: Allergies No Known Drug Allergies Allergy (Verified 08/07/19 22:13) Review of Systems Review of systems same as previous: No (pain in both knees, sched ortho appt) Physical Exam Vital signs obtained and entered by: L. JACQUELYN, EXCHANGE ARCHITECT AAMA Blood Pressure: 156/75 (LEFT, PULSE 76, RESP 14) Heart Rate: 77 O2 Saturation: 96 (N95 MASK) Height: 5 ft 9 in Weight: 179 lb (W/O CLOTHES) Body Mass Index: 26.4 BMI Classification: Overweight Impression and Plan 1. Obstructive Sleep Apnea-Hypopnea Syndrome, moderate, with good treatment compliance and fair apnea control with minimal elevation of residual AHI. On CPAP therapy, the patient has better sleep quality and is more rested overall. Patient has a [employer] Dreamstation. Patient has already registered their device for the recall. Patient denies any black particles seen in machine or hoses, any unusual odors coming from device. Patient has not experienced any physical symptoms such as upper airway irritation, headache, skin or eye irritation, asthma, nausea/vomiting, difficulty breathing or chest pain. If patient is not able to sleep due to waking up choking, gasping for air or other respiratory distress that they may decide to continue using it until it is either replaced or repaired. Patient has stopped using his ozone cpap apron cleaner. He still uses his CPAP but states he burps every morning since the pressure was increased last year. To reduce symptoms of aerophagia, the CPAP pressure will be reduced to 13- 14 cmH2O. Patient advised to contact me if this does not reduce symptoms or if pressure change uncomfortable. Patient voiced understanding and agreement with plan. Patient's apnea severity and rationale for treatment to reduce apnea, improve sleep quality and reduce cardiovascular and cerebrovascular events was reviewed. I also reviewed the benefit of consistent device use of CPAP for hypertension, cardiac disease, and arrhythmia. Patient was encouraged to try to lose weight to improve his overall health and to reduce apneas. * Change auto CPAP pressure to 13-14 cmH2O * Notify me if snoring with mask or feeling that the pressure is too much or too little * Attempt to lose weight * Call this office if any problems using CPAP * Return for follow up in 1 year, or sooner if concerns arise Counseling Topics: Spare mask, Weight loss health impact Visit Type: In Office Time Spent with Patient (minutes): 21 Provider Statement: I spent 100% of the Face to Face Visit with the patient with greater than 50% spent counseling the patient and coordination of care.
== END 2021-07-21 10:36 | disposition home or self-care (01) ==
LOC: SC 10:35
PROVIDERS: ATTEND Nurse Practitioner Family
DX: G47.33 Obstructive sleep apnea (adult) (pediatric) (principal); E66.3 Overweight; Z68.26 Body mass index [BMI] 26.0-26.9, adult
CPT/HCPCS: 99213; G0463; 99212

== ENCOUNTER 2021-08-02 08:00 | Outpatient (CLI) | payer MEDICARE, BC | END 2021-08-02 23:59 | disposition home or self-care (01) | LOC: LAB.N 08:00 | PROVIDERS: ATTEND Family Medicine | DX: Z79.01 Long term (current) use of anticoagulants (principal); Z95.2 Presence of prosthetic heart valve; I63.9 Cerebral infarction, unspecified; G45.9 Transient cerebral ischemic attack, unspecified ==

== ENCOUNTER 2021-08-16 08:00 | Outpatient (CLI) | payer MEDICARE, BC | END 2021-08-16 23:59 | disposition home or self-care (01) | LOC: LAB.WCP 08:00 | PROVIDERS: ATTEND Family Medicine | DX: I63.9 Cerebral infarction, unspecified (principal); G45.9 Transient cerebral ischemic attack, unspecified; Z95.2 Presence of prosthetic heart valve; Z79.01 Long term (current) use of anticoagulants ==

== ENCOUNTER 2021-08-23 08:00 | Outpatient (CLI) | payer MEDICARE, BC | END 2021-08-23 23:59 | disposition home or self-care (01) | LOC: LAB.N 08:00 | PROVIDERS: ATTEND Family Medicine | DX: Z79.01 Long term (current) use of anticoagulants (principal); Z95.2 Presence of prosthetic heart valve; I63.9 Cerebral infarction, unspecified; G45.9 Transient cerebral ischemic attack, unspecified ==

== ENCOUNTER 2021-08-30 08:00 | Outpatient (CLI) | payer MEDICARE, BC | END 2021-08-30 23:59 | disposition home or self-care (01) | LOC: LAB.N 08:00 | PROVIDERS: ATTEND Family Medicine | DX: I63.9 Cerebral infarction, unspecified (principal); G45.9 Transient cerebral ischemic attack, unspecified; Z95.2 Presence of prosthetic heart valve; Z79.01 Long term (current) use of anticoagulants ==

== ENCOUNTER 2021-09-23 16:36 | Emergency (ER) | payer MEDICARE, BC ==
[2021-09-23 17:00] VITALS: BP 147/80
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
--- NOTE | 2021-09-23 17:46 | CT Report ---
PROCEDURE: HEAD WO INDICATIONS: head injury TECHNIQUE: Noncontrast 4.5 mm thick angled axial sections acquired from the foramen magnum to the vertex. For r adiation dose reduction, the following was used: automated exposure control, adjustment of mA and/or kV according to patient size. COMPARISON: 04/24/2019 FINDINGS: Image quality: Excellent. CSF spaces: Basal cisterns are patent. No extra-axial fluid collections. Ventricles are stable, wi th ex vacuo dilatation involving the posterior aspect of the right lateral ventricle. Brain: No midline shift. No intracranial masses or hemorrhage. Balderas-white matter interface is norm al. Volume loss is seen within the posterior aspect of the right cerebral hemisphere. Skull and face: Right parietal craniotomy change is again seen. Calvarium and visualized facial bone s are intact, without suspicious lesions. Sinuses: Visualized sinuses and mastoids are clear. IMPRESSION: No acute abnormality is seen. No intracranial hemorrhage is seen. Prior right parietal craniotomy change is again seen. Right posterior cerebral hemisphere volume loss, with associated ex vacuo dilatation of the right lat eral ventricle. Reviewed by: Gentry Correa MD on 09/23/2021 4:44 PM CARLITA Approved by: Gentry Correa MD on 09/23/2021 4:44 PM AKCONNIE Station ID: [id number]
== END 2021-09-23 17:53 | disposition home or self-care (01) ==
LOC: ED 16:36
DX: S09.90XA Unspecified injury of head, initial encounter (principal); W22.8XXA Striking against or struck by other objects, initial encounter; Y93.89 Activity, other specified; Z79.01 Long term (current) use of anticoagulants; Z95.2 Presence of prosthetic heart valve
CPT/HCPCS: 85610; 99282; 99284

== ENCOUNTER 2021-09-27 08:00 | Outpatient (CLI) | payer MEDICARE, BC | END 2021-09-27 23:59 | disposition home or self-care (01) | LOC: LAB.N 08:00 | PROVIDERS: ATTEND Family Medicine | DX: G45.9 Transient cerebral ischemic attack, unspecified (principal); I63.9 Cerebral infarction, unspecified; Z95.2 Presence of prosthetic heart valve; Z79.01 Long term (current) use of anticoagulants ==

== ENCOUNTER 2021-09-30 12:48 | Emergency (ER) | payer MEDICARE, BC ==
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
[2021-09-30 13:19] LABS: BASOPHILS # (AUTO) 0.1 10^3/uL (0.0-0.1); BASOPHILS % (AUTO) 0.7 %; EOSINOPHILS # (AUTO) 0.2 10^3/uL (0.0-0.7); HCT - HEMATOCRIT 39.3 % (42.0-52.0); HGB - HEMOGLOBIN 13.4 g/dL (14.0-18.0); LYMPHOCYTES # (AUTO) 1.2 10^3/uL (1.5-3.5); LYMPHOCYTES % (AUTO) 16.5 %; MEAN CORPUSCULAR HEMOGLOBIN 31.3 pg (27.0-31.0); MEAN CORPUSCULAR HGB CONC 34.1 g/dL (32.0-36.0); MEAN CORPUSCULAR VOLUME 91.8 fL (80.0-94.0); MEAN PLATELET VOLUME 9.9 fL (7.4-11.4); MONOCYTES # (AUTO) 0.8 10^3/uL (0.0-1.0); MONOCYTES % (AUTO) 11.2 %; NEUTROPHILS # (AUTO) 5.2 10^3/uL (1.5-6.6); NEUTROPHILS % (AUTO) 69.3 %; PLT - PLATELET COUNT 205 10^3/uL (130-450); RED BLOOD COUNT 4.28 10^6/uL (4.70-6.10); RED CELL DISTRIBUTION WIDTH 13.4 % (12.0-15.0); WHITE BLOOD COUNT 7.5 x10^3/uL (4.8-10.8)
[2021-09-30 13:26] LABS: INR 2.2 (0.8-1.2); PT - PROTHROMBIN TIME 24.9 secs (9.9-12.6)
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
[2021-09-30 13:33] LABS: ALBUMIN 4.3 g/dL (3.2-5.5); ALBUMIN/GLOBULIN RATIO 1.4 (1.0-2.2); BILIRUBIN,TOTAL 1.4 mg/dL (0.2-1.0); CALCIUM 9.4 mg/dL (8.5-10.3); CREATININE 0.8 mg/dL (0.6-1.2); POTASSIUM 3.6 mmol/L (3.5-5.0); TOTAL PROTEIN 7.4 g/dL (6.7-8.2)
[2021-09-30 14:17] VITALS: BP 130/67
== END 2021-09-30 14:17 | disposition home or self-care (01) ==
LOC: ED 12:48
DX: R51.9 Headache, unspecified (principal); Z79.01 Long term (current) use of anticoagulants; Z95.2 Presence of prosthetic heart valve
CPT/HCPCS: 36415; 80053; 83690; 85025; 85610; 99282; 99284

== ENCOUNTER 2021-10-04 08:00 | Outpatient (CLI) | payer MEDICARE, BC | END 2021-10-04 23:59 | disposition home or self-care (01) | LOC: LAB.WCP 08:00 | PROVIDERS: ATTEND Family Medicine | DX: Z79.01 Long term (current) use of anticoagulants (principal); I63.9 Cerebral infarction, unspecified; G45.9 Transient cerebral ischemic attack, unspecified; Z95.2 Presence of prosthetic heart valve ==

== ENCOUNTER 2021-10-06 06:12 | Outpatient (CLI) | payer MEDICARE, BC | END 2021-10-06 06:13 | disposition critical access hospital (66) | LOC: EMS 06:12 | DX: M54.50 Low back pain, unspecified (principal) | CPT/HCPCS: A0425; A0429 ==

== ENCOUNTER 2021-10-06 06:31 | Emergency (ER) | payer MEDICARE, BC ==
--- NOTE | 2021-10-06 07:42 | ED Physician Documentation ---
History of Present Illness - Stated complaint Stated Complaint: BACK PX - Chief complaint Chief Complaint: Back Pain - History obtained from History obtained from: Patient - Additonal information Additional information: The patient comes to the emergency department chief complaint of right low back pain. He states that approximately a week ago, he was working in his garage and lifted a flat plants. He thinks that he may have strained his back at that time, although he did not have pain right away. He really cannot think of anything else that would have caused his back to become sore, but he noticed that as the day went on, he began to feel an ache in his right lower back, toward the top of his buttock. The patient states that it has been fairly mild since then, but that this morning around 3:00, he awakened and felt the urge to urinate, so he swung his legs over the side of the bed and reached down to turn off his CPAP machine. At that time, he noticed that the pain suddenly seemed to get worse in the same area where he had been feeling it. The patient was able to get up and walk to the bathroom, though he states he was in a lot of pain and ended up Been incontinent of urine. However, the patient thinks this was because he had to go quite badly to begin with and then was hurting so much that he just cannot hold it. He states he has not had any urine dribbling since and has had no bowel incontinence. He does not have any numbness or pain shooting down his leg. He states that every morning, he wakes up with a sort of numb sensation in the soles of his feet and coming up the backs of his legs, but that this goes away as he gets up and walks around. Patient states the pain is little better now than it was. No other complaints at this time. Review of Systems Ten Systems: 10 systems reviewed and negative Constitutional: reports: Reviewed and negative Eyes: reports: Reviewed and negative Ears: reports: Reviewed and negative Nose: reports: Reviewed and negative Throat: reports: Reviewed and negative Cardiac: reports: Reviewed and negative Respiratory: reports: Reviewed and negative GI: reports: Reviewed and negative : reports: Reviewed and negative. denies: Dysuria, Frequency Skin: reports: Reviewed and negative Musculoskeletal: reports: Back pain Neurologic: reports: Reviewed and negative Psychiatric: reports: Reviewed and negative Endocrine: reports: Reviewed and negative Immunocompromised: reports: Reviewed and negative PD PAST MEDICAL HISTORY - Past Medical History Cardiovascular: Arrhythmia, Valve disorder Respiratory: Asthma, Sleep apnea, CPAP use Neuro: None Endocrine/Autoimmune: None GI: None, Colon polyps, Hemorrhoids, Diverticulitis : None HEENT: None, Chronic vision loss Psych: None Musculoskeletal: Osteoarthritis, Chronic back pain Derm: Psoriasis, Other - Past Surgical History Past Surgical History: Yes Cardiovascular: Valve replacement HEENT: Tonsil/Adenoidectomy - Present Medications Home Medications: Ambulatory Orders Medication Instructions Recorded Confirmed Simvastatin 20 mg PO DAILY 09/13/13 10/06/21 lisinopriL [Lisinopril] 20 mg PO BID 03/17/16 10/06/21 Fluticasone [Flonase] 2 sprays NICOLE DAILY 05/05/16 10/06/21 Warfarin [Coumadin] 7.5 mg PO SUMOWEFR@1400 05/05/16 10/06/21 hydroCHLOROthiazide 12.5 mg PO DAILY 05/05/16 10/06/21 [Hydrochlorothiazide] Acetaminophen 500 mg PO PRN PRN 08/07/19 10/06/21 Omeprazole 20 mg PO TID 08/07/19 10/06/21 Vit B12 250 mcg PO DAILY 08/07/19 10/06/21 amLODIPine [Norvasc] 2.5 mg PO DAILY 08/07/19 10/06/21 Cyclobenzaprine [Flexeril] 10 mg PO TID PRN #20 tablet 10/06/21 HYDROcod/ACETAM 5/325 [[place] 5/325] 1 - 2 tablet PO Q6H PRN #7 tablet 10/06/21 - Allergies Allergies/Adverse Reactions: Allergies Allergy/AdvReac Type Severity Reaction Status Date / Time No Known Drug Allergies Allergy Verified 10/06/21 07:19 - Social History Does the pt smoke?: No Smoking Status: Never smoker Does the pt drink ETOH?: Yes Does the pt have substance abuse?: No - Immunizations Immunizations are current?: Yes - POLST Patient has POLST: No PD ED PE NORMAL - Vitals Vital signs reviewed: Yes - General General: Alert and oriented X 3, No acute distress, Well developed/nourished - HEENT HEENT: Atraumatic, PERRL, EOMI, Moist mucous membranes - Neck Neck: Supple, no meningeal sign, No bony TTP - Cardiac Cardiac: Strong equal pulses - Respiratory Respiratory: No respiratory distress - Abdomen Abdomen: Soft, Non tender, Non distended - Back Back: No CVA TTP, No spinal TTP, Other (Mild tenderness palpation of the patient's lateral right paraspinal musculature and sacral area.) - Derm Derm: Warm and dry - Extremities Extremities: No deformity - Neuro Neuro: Alert and oriented X 3 - Psych Psych: Normal mood, Normal affect Results - Vitals Vitals: Vital Signs - 24 hr 10/06/21 10/06/21 10/06/21 06:37 06:52 08:22 Temperature 36.5 C Heart Rate 65 60 58 L Respiratory 14 15 24 Rate Blood Pressure 167/112 H 139/72 H O2 Saturation 97 96 97 Oxygen O2 Source Room air PD MEDICAL DECISION MAKING - ED course ED course: The patient seems to have strained his low back musculature approximately a week ago and exacerbated that same injury this morning. He had not experienced a jarring or high velocity or Hi-Torque injury that would bear a high likelihood of fracture, dislocation, or ligamentous injury, and I suspected a muscular strain. I discussed with the patient that x-rays are unlikely to be of any benefit in this situation and that emergent MRI is not indicated. If the patient continues to have symptoms after couple of weeks and has not noticed any significant improvement, then he should call his primary doctor to discuss whether MRI would be a good idea at that point. The patient has expressed understanding. I offered the patient symptomatic management in the emergency department and initially, he was not sure if he wanted to go this route. However on reevaluation, he had decided he would like some medication, and so he was given a low dose of Toradol, and consideration of his Coumadin, a dose of prednisone and a dose of Flexeril. He is given prescriptions for Flexeril and a small amount of Vicodin for at home as needed. We have discussed the usual indications for return. Departure - Departure Disposition: 01 Home, Self Care Clinical Impression: Acute lumbar myofascial strain Qualifiers: Encounter type: initial encounter Qualified Code(s): S39.012A - Strain of muscle, fascia and tendon of lower back, initial encounter Condition: Stable Instructions: ED Sprain Strain Lumbar Prescriptions: Cyclobenzaprine [Flexeril] 10 mg PO TID PRN #20 tablet PRN Reason: Spasms HYDROcod/ACETAM 5/325 [[place] 5/325] 1 - 2 tablet PO Q6H PRN #7 tablet PRN Reason: Pain Comments: As we have discussed, your pain is not in the region of your spine, but is to the right in the musculature. Additionally, the sorts of movements that you have made in connection with the onset of the pain and the pain worsening are not to the degree where we would expect torn ligaments or broken bones. Most likely, you have strained the musculature of your low back, and your symptoms reflect this. The vast majority these sorts of injuries get better on their own, given some weeks of time. You may use the muscle relaxer and pain medication if needed to help with this. As we discussed, if you are not noticing significant improvement after the next couple of weeks, please make an appointment to follow-up with your primary care physician and discuss whether MRI is indicated at that point. At this point in time, there is no indication for emergent MRI in the emergency department today. Your prescriptions have been electronically transmitted to [facility] in [place], at your request. Discharge Date/Time: 10/06/21 08:38
[2021-10-06] MEDS ORDERED: DEXAMETHASONE 10 MG/ML VIAL IM STA (08:05)
[2021-10-06] MEDS ORDERED: KETOROLAC 15 MG/ML VIAL IM STA (08:05)
[2021-10-06] MEDS ORDERED: CYCLOBENZAPRINE 10 MG TABLET PO STA (08:05)
[2021-10-06 08:22] VITALS: BP 139/72
== END 2021-10-06 08:38 | disposition home or self-care (01) ==
LOC: EDUNIT# → ED 06:31
DX: S39.012A Strain of muscle, fascia and tendon of lower back, initial encounter (principal); X58.XXXA Exposure to other specified factors, initial encounter
CPT/HCPCS: 96372; 99282; 99283; A9270

== ENCOUNTER 2021-10-20 08:00 | Outpatient (CLI) | payer MEDICARE, BC | END 2021-10-20 23:59 | disposition home or self-care (01) | LOC: LAB.N 08:00 | PROVIDERS: ATTEND Family Medicine | DX: Z79.01 Long term (current) use of anticoagulants (principal); I63.9 Cerebral infarction, unspecified; G45.9 Transient cerebral ischemic attack, unspecified; Z95.2 Presence of prosthetic heart valve ==

== ENCOUNTER → 2021-11-22 | Outpatient (CLI) | payer MEDICARE, BC | LOC: LAB.N 08:00 | PROVIDERS: ATTEND Family Medicine | DX: G45.9 Transient cerebral ischemic attack, unspecified (principal); I63.9 Cerebral infarction, unspecified; Z95.2 Presence of prosthetic heart valve; Z79.01 Long term (current) use of anticoagulants ==

== ENCOUNTER 2022-02-16 08:00 | Outpatient (CLI) | payer MEDICARE, BC | END 2022-02-16 23:59 | disposition home or self-care (01) | LOC: LAB.N 08:00 | PROVIDERS: ATTEND Family Medicine | DX: I63.9 Cerebral infarction, unspecified (principal); G45.9 Transient cerebral ischemic attack, unspecified; Z95.2 Presence of prosthetic heart valve; Z79.01 Long term (current) use of anticoagulants ==

== ENCOUNTER 2022-02-23 08:00 | Outpatient (CLI) | payer MEDICARE, BC | END 2022-02-23 08:01 | disposition home or self-care (01) | LOC: LAB.N 08:00 | PROVIDERS: ATTEND Family Medicine | DX: Z79.01 Long term (current) use of anticoagulants (principal); I63.9 Cerebral infarction, unspecified; G45.9 Transient cerebral ischemic attack, unspecified; Z95.2 Presence of prosthetic heart valve | CPT/HCPCS: 1040M ==

== ENCOUNTER 2022-02-28 09:52 | Outpatient (CLI) | payer MEDICARE, BC ==
[2022-02-28 12:43] LABS: BASOPHILS # (AUTO) 0.1 10^3/uL (0.0-0.1); BASOPHILS % (AUTO) 0.8 %; EOSINOPHILS # (AUTO) 0.2 10^3/uL (0.0-0.7); EOSINOPHILS % (AUTO) 2.3 %; HCT - HEMATOCRIT 41.9 % (42.0-52.0); LYMPHOCYTES # (AUTO) 1.2 10^3/uL (1.5-3.5); LYMPHOCYTES % (AUTO) 18.6 %; MEAN CORPUSCULAR HGB CONC 33.4 g/dL (32.0-36.0); MEAN CORPUSCULAR VOLUME 95.9 fL (80.0-94.0); MEAN PLATELET VOLUME 10.4 fL (7.4-11.4); MONOCYTES # (AUTO) 0.8 10^3/uL (0.0-1.0); MONOCYTES % (AUTO) 12.2 %; NEUTROPHILS # (AUTO) 4.2 10^3/uL (1.5-6.6); NEUTROPHILS % (AUTO) 65.6 %; PLT - PLATELET COUNT 228 10^3/uL (130-450); RED BLOOD COUNT 4.37 10^6/uL (4.70-6.10); WHITE BLOOD COUNT 6.4 x10^3/uL (4.8-10.8)
[2022-02-28 13:10] LABS: ALBUMIN 4.6 g/dL (3.2-5.5); ALBUMIN/GLOBULIN RATIO 1.7 (1.0-2.2); ALKALINE PHOSPHATASE 64 IU/L (42-121); ALT ALANINE AMINOTRANSFERASE 29 IU/L (10-60); AST ASPARTATE AMINOTRANSFERASE 25 IU/L (10-42); BILIRUBIN,TOTAL 1.4 mg/dL (0.2-1.0); BUN - BLOOD UREA NITROGEN 18 mg/dL (6-20); CALCIUM 9.9 mg/dL (8.5-10.3); CARBON DIOXIDE - CO2 31 mmol/L (21-32); CHLORIDE 104 mmol/L (101-111); CHOL/HDL RATIO 3.5 (<5.0); CHOLESTEROL 124 mg/dL; CREATININE 0.8 mg/dL (0.6-1.2); GFR - MDRD 93 (>89); GLUCOSE 101 mg/dL (70-100); HDL CHOLESTEROL 35 mg/dL; LDL CHOLESTEROL,CALCULATED 65 mg/dL; LDL/HDL RATIO 1.9 (<3.6); SODIUM 139 mmol/L (135-145); TOTAL PROTEIN 7.3 g/dL (6.7-8.2); TRIGLYCERIDES 120 mg/dL; VLDL CHOLESTEROL 24 mg/dL
[2022-02-28 13:18] LABS: THYROID STIMULATING HORMONE 3.79 uIU/mL (0.34-5.60)
[2022-02-28 13:35] LABS: ESTIMATED AVERAGE GLUCOSE 105 mg/dL (70-100); HEMOGLOBIN A1c% 5.3 % (4.27-6.07)
== END 2022-02-28 09:53 | disposition home or self-care (01) ==
LOC: LAB.N 09:52
PROVIDERS: ATTEND Family Medicine
DX: I10 Essential (primary) hypertension (principal); R26.9 Unspecified abnormalities of gait and mobility; G81.90 Hemiplegia, unspecified affecting unspecified side; L40.9 Psoriasis, unspecified; K21.9 Gastro-esophageal reflux disease without esophagitis; R73.9 Hyperglycemia, unspecified; Z95.2 Presence of prosthetic heart valve
CPT/HCPCS: 36415; 80053; 80061; 83036; 83721; 84443; 85025

== ENCOUNTER 2022-03-09 08:00 | Outpatient (CLI) | payer MEDICARE, BC | END 2022-03-09 23:59 | disposition home or self-care (01) | LOC: LAB.WCP 08:00 | PROVIDERS: ATTEND Family Medicine | DX: Z79.01 Long term (current) use of anticoagulants (principal); I63.9 Cerebral infarction, unspecified; G45.9 Transient cerebral ischemic attack, unspecified; Z95.2 Presence of prosthetic heart valve ==

== ENCOUNTER 2022-06-10 08:00 | Outpatient (CLI) | payer MEDICARE, BC | END 2022-06-10 23:59 | disposition home or self-care (01) | LOC: LAB.WCP 08:00 | PROVIDERS: ATTEND Family Medicine | DX: Z79.01 Long term (current) use of anticoagulants (principal); Z95.2 Presence of prosthetic heart valve; I63.9 Cerebral infarction, unspecified; G45.9 Transient cerebral ischemic attack, unspecified ==

== ENCOUNTER → 2022-06-20 | Outpatient (CLI) | payer MEDICARE, BC | LOC: LAB.WCP 08:00 | PROVIDERS: ATTEND Family Medicine | DX: Z79.01 Long term (current) use of anticoagulants (principal); I63.9 Cerebral infarction, unspecified; G45.9 Transient cerebral ischemic attack, unspecified; Z95.2 Presence of prosthetic heart valve; Q23.1 Congenital insufficiency of aortic valve ==

== ENCOUNTER 2022-06-27 08:00 | Outpatient (CLI) | payer MEDICARE, BC | END 2022-06-27 23:59 | disposition home or self-care (01) | LOC: LAB.WCP 08:00 | PROVIDERS: ATTEND Family Medicine | DX: I63.9 Cerebral infarction, unspecified (principal); G45.9 Transient cerebral ischemic attack, unspecified; Z95.2 Presence of prosthetic heart valve; Z79.01 Long term (current) use of anticoagulants ==

== ENCOUNTER 2022-07-20 08:00 | Outpatient (CLI) | payer MEDICARE, BC | END 2022-07-20 23:59 | disposition home or self-care (01) | LOC: LAB.N 08:00 | PROVIDERS: ATTEND Family Medicine | DX: I63.9 Cerebral infarction, unspecified (principal); G45.9 Transient cerebral ischemic attack, unspecified; Z95.2 Presence of prosthetic heart valve; Z79.01 Long term (current) use of anticoagulants ==

== ENCOUNTER 2022-08-03 14:44 | Outpatient (CLI) | payer MEDICARE, BC ==
[2022-08-03 15:14] VITALS: BP 128/62
--- NOTE | 2022-08-03 15:14 | SLEEP CARE CONSULTATION ---
Information from patient questionnaire entered by Nicole Gonzalez. I have reviewed and concur with the information entered by Nicole Gonzalez. This document represents the service I personally performed and the decisions made by me, Harper Colin ARNP. History of Present Illness Service Date and Time: 08/03/2022 1444 Previous diagnosis: Moderate, Obstructive Sleep Apnea-Hypopnea Syndrome AHI: 19.8 (in 2014) Reason for follow up: annual (LAST SEEN 07/2021) Accompanied by: Spouse Equipment type: CPAP ([employer] Dreamstation recertified s/u 12/2019) Equipment obtained from: [facility] [employer] (getting supplies as needed) Mask style: Full face Backup mask available: Yes (other masks) Last cushion change: 1 week Prior sleep studies: Yes Year and Where: 2014 - [facility] HPI additional information: PADDY ABBOTT was diagnosed to have moderate, AHI 9.8, obstructive sleep apnea- hypopnea syndrome and returned today with spouse for CPAP therapy annual follow- up. Sleep Study - Results Prior sleep studies: Yes Year and Where: 2014 - [facility] CPAP Compliance Data - Data Reviewed with Patient Average duration of nightly device use: 6 HRS 32 MIN 37SEC Compliance rate %: 92.8 (02/03/22-08/01/22; 175/180 days used) Current pressure setting (cmH2O): 13-14 Average residual AHI: 8.9 Central apnea: 0.5 Obstructive apnea: 4.4 Hypopnea: 4 Average large leak: 14 mins 8 secs Subjective Patient concerns: reports: mask leak noise, condensation in mask/hose (drooling in mask). denies: aerophagia, mask discomfort, air blowing in eyes, nasal congestion, dry mouth, nose, throat, epistaxis Observed to snore while using device: No Current pressure setting perceived as: comfortable On therapy, patient: reports: sleeping better, awakening more refreshed, being more awake and alert during the day, more rested overall. denies: drowsiness while driving Initial [place] Sleepiness Scale score: 6 (in 2014) Current [place] Sleepiness Scale score: 10 (08/03/22) Allergies and Home Medications Drug allergies reviewed: Yes (NKDA) Home medication list reviewed: Yes (no changes) Review of Systems Review of systems same as previous: Yes (no changes) Physical Exam Vital signs obtained and entered by: NICOLE Damon MA Blood Pressure: 128/62 (left arm) Cuff size: regular Heart Rate: 62 O2 Saturation: 97 Height: 5 ft 9 in Weight: 183 lb 9.6 oz Body Mass Index: 27.1 BMI Classification: Overweight Impression and Plan 1. Obstructive Sleep Apnea-Hypopnea Syndrome, moderate, with good treatment compliance and fair apnea control with elevated residual AHI. On CPAP therapy, the patient has better sleep quality and is more rested overall. Patient has significant improvement of their sleep apnea and is satisfied with current CPAP therapy. Patient states he has had a replacement from [email or web address], so he now has a re-certified DreamStation. He states he does get some moisture in his mask but thinks it is just from drooling. He never has any condensation in the hose. The patients pressure will be changed to autoCPAP 13-14.5 cmH20 for elevation of residual AHI. Patient advised to contact me if pressure change is uncomfortable so that it can be adjusted. Goals for apnea control discussed. Patient's apnea severity and rationale for treatment to reduce apnea, improve sleep quality and reduce cardiovascular and cerebrovascular events was reviewed. I also reviewed the benefit of consistent device use of CPAP for hypertension, cardiac disease and arrhythmia. 2. Overweight, unspecified. Currently patients BMI is 27.1. Obesity increases the risk of apnea, CPAP pressure requirements and overall health risks especially cardiovascular and diabetes. Thus patient is advised to lose weight. * Change auto CPAP pressure to 13-14.5 cmH2O * Update supplies * Notify me if snoring with mask or feeling that the pressure is too much or too little * Attempt to lose weight * Call this office if any problems using CPAP * Return for follow up in 1 year, or sooner if concerns arise Counseling Topics: Spare mask, Weight loss health impact Visit Type: In Office Other Participants: Spouse/Significant Other Time Spent with Patient (minutes): 20 Provider Statement: I spent 100% of the Face to Face Visit with the patient with greater than 50% spent counseling the patient and coordination of care.
== END 2022-08-03 14:45 | disposition home or self-care (01) ==
LOC: SC 14:44
PROVIDERS: ATTEND Nurse Practitioner Family
DX: G47.33 Obstructive sleep apnea (adult) (pediatric) (principal); E66.3 Overweight; Z68.27 Body mass index [BMI] 27.0-27.9, adult
CPT/HCPCS: 99213; G0463; 99212

== ENCOUNTER 2022-09-02 08:00 | Outpatient (CLI) | payer MEDICARE, BC | END 2022-09-02 23:59 | disposition home or self-care (01) | LOC: LAB.N 08:00 | PROVIDERS: ATTEND Family Medicine | DX: G45.9 Transient cerebral ischemic attack, unspecified (principal); I63.9 Cerebral infarction, unspecified; Z95.2 Presence of prosthetic heart valve; Z79.01 Long term (current) use of anticoagulants ==

== ENCOUNTER 2022-09-16 08:00 | Outpatient (CLI) | payer MEDICARE, BC | END 2022-09-16 23:59 | disposition home or self-care (01) | LOC: LAB.N 08:00 | PROVIDERS: ATTEND Family Medicine | DX: Z79.01 Long term (current) use of anticoagulants (principal); Z95.2 Presence of prosthetic heart valve; I63.9 Cerebral infarction, unspecified; G45.9 Transient cerebral ischemic attack, unspecified ==

== ENCOUNTER 2022-10-24 10:53 | Outpatient (CLI) | payer MEDICARE, BC ==
[2022-10-24 17:39] LABS: BASOPHILS # (AUTO) 0.1 10^3/uL (0.0-0.1); BASOPHILS % (AUTO) 0.8 %; EOSINOPHILS # (AUTO) 0.2 10^3/uL (0.0-0.7); EOSINOPHILS % (AUTO) 3.4 %; HGB - HEMOGLOBIN 13.9 g/dL (14.0-18.0); LYMPHOCYTES # (AUTO) 1.3 10^3/uL (1.5-3.5); LYMPHOCYTES % (AUTO) 21.1 %; MEAN CORPUSCULAR HEMOGLOBIN 30.9 pg (27.0-31.0); MEAN CORPUSCULAR HGB CONC 32.3 g/dL (32.0-36.0); MEAN CORPUSCULAR VOLUME 95.6 fL (80.0-94.0); MEAN PLATELET VOLUME 10.6 fL (7.4-11.4); MONOCYTES # (AUTO) 0.7 10^3/uL (0.0-1.0); MONOCYTES % (AUTO) 10.7 %; NEUTROPHILS # (AUTO) 3.9 10^3/uL (1.5-6.6); NEUTROPHILS % (AUTO) 63.7 %; PLT - PLATELET COUNT 230 10^3/uL (130-450); RED CELL DISTRIBUTION WIDTH 13.2 % (12.0-15.0); WHITE BLOOD COUNT 6.2 x10^3/uL (4.8-10.8)
[2022-10-24 17:57] LABS: ALBUMIN 4.5 g/dL (3.2-5.5); ALBUMIN/GLOBULIN RATIO 1.4 (1.0-2.2); ALKALINE PHOSPHATASE 70 IU/L (42-121); ALT ALANINE AMINOTRANSFERASE 18 IU/L (10-60); AST ASPARTATE AMINOTRANSFERASE 21 IU/L (10-42); BUN - BLOOD UREA NITROGEN 24 mg/dL (6-20); CALCIUM 9.9 mg/dL (8.5-10.3); CARBON DIOXIDE - CO2 27 mmol/L (21-32); CHLORIDE 103 mmol/L (101-111); CHOL/HDL RATIO 3.5 (<5.0); CHOLESTEROL 120 mg/dL; CREATININE 0.9 mg/dL (0.6-1.2); GFR - MDRD 81 (>89); GLUCOSE 108 mg/dL (70-100); HDL CHOLESTEROL 34 mg/dL; LDL CHOLESTEROL,CALCULATED 64 mg/dL; LDL/HDL RATIO 1.9 (<3.6); POTASSIUM 4.4 mmol/L (3.5-5.0); SODIUM 137 mmol/L (135-145); TOTAL PROTEIN 7.7 g/dL (6.7-8.2); TRIGLYCERIDES 111 mg/dL; VLDL CHOLESTEROL 22 mg/dL
[2022-10-24 18:06] LABS: THYROID STIMULATING HORMONE 2.72 uIU/mL (0.34-5.60)
[2022-10-24 19:22] LABS: ESTIMATED AVERAGE GLUCOSE 120 mg/dL (70-100); HEMOGLOBIN A1c% 5.8 % (4.27-6.07)
== END 2022-10-24 10:54 | disposition home or self-care (01) ==
LOC: LAB.N 10:53
PROVIDERS: ATTEND Family Medicine
DX: I10 Essential (primary) hypertension (principal); R73.9 Hyperglycemia, unspecified; M17.0 Bilateral primary osteoarthritis of knee; Z95.2 Presence of prosthetic heart valve; G81.90 Hemiplegia, unspecified affecting unspecified side; L40.9 Psoriasis, unspecified; I63.9 Cerebral infarction, unspecified
CPT/HCPCS: 36415; 80053; 80061; 83036; 83721; 84443; 85025

== ENCOUNTER 2023-01-11 08:00 | Outpatient (CLI) | payer MEDICARE, BC | END 2023-01-11 23:59 | disposition home or self-care (01) | LOC: LAB.N 08:00 | PROVIDERS: ATTEND Family Medicine | DX: Z79.01 Long term (current) use of anticoagulants (principal); I63.9 Cerebral infarction, unspecified; G45.9 Transient cerebral ischemic attack, unspecified; Z95.2 Presence of prosthetic heart valve ==

== ENCOUNTER 2023-02-08 12:08 | Outpatient (CLI) | payer MEDICARE, BC ==
--- NOTE | 2023-02-08 16:03 | MRI Report ---
PROCEDURE: BRAIN WO INDICATIONS: MEMORY LOSS, PERSONALTIY CHANGE TECHNIQUE: Noncontrast axial T1 spin echo, axial T2 fast spin echo, sagittal and axial FLAIR, coronal T2 fast sp in echo, axial gradient echo, axial diffusion and ADC through the brain. COMPARISON: CT head 09/30/2021. FINDINGS: Image quality: Excellent. CSF Spaces: Basal cisterns are patent. No extra-axial fluid collections. Ex vacuo dilatation of the right lateral ventricle. Brain: No intracranial masses or hemorrhage. Balderas/white matter interface is normal. Brainstem appe ars normal. Diffusion-weighted images demonstrate no acute ischemic insult. There are T2/FLAIR hype rintensities within the deep and periventricular white matter, nonspecific and likely representing ch ronic microvascular ischemic change. Age-related global volume loss. Redemonstration of volume loss i n the right cerebral hemisphere with ex vacuo dilatation right lateral ventricle. The scattered foci of susceptibility artifact, likely sequela of prior hypertensive microvascular hemorrhage. Normal int ravascular flow voids are present. Skull and face: Status post right parietal craniotomy. Calvarium has normal marrow signal. Bilatera l lens replacements. The orbits are otherwise normal in appearance. Sinuses: Sinuses and mastoids are clear. IMPRESSION: 1.Age-related global volume loss and chronic microvascular ischemic change. 2.No acute or subacute infarct. No acute intracranial abnormalities. Reviewed by: Luis Alfredo Antony MD on 02/08/2023 4:02 PM PDT Approved by: Luis Alfredo Antony MD on 02/08/2023 4:02 PM PDT Station ID: [id number]
== END 2023-02-08 12:09 | disposition home or self-care (01) ==
LOC: DI 12:08
PROVIDERS: ATTEND Nurse Practitioner
DX: R41.3 Other amnesia (principal); F68.8 Other specified disorders of adult personality and behavior; I10 Essential (primary) hypertension; R53.83 Other fatigue
CPT/HCPCS: 36415; 82607; 82746; 85651

== ENCOUNTER 2023-03-13 08:00 | Outpatient (CLI) | payer MEDICARE, BC | END 2023-03-13 23:59 | disposition home or self-care (01) | LOC: LAB.WCP 08:00 | PROVIDERS: ATTEND Family Medicine | DX: I63.9 Cerebral infarction, unspecified (principal); G45.9 Transient cerebral ischemic attack, unspecified; Z95.2 Presence of prosthetic heart valve; Z79.01 Long term (current) use of anticoagulants ==

== ENCOUNTER 2023-07-19 08:00 | Outpatient (CLI) | payer MEDICARE, BC | END 2023-07-19 08:01 | disposition home or self-care (01) | LOC: LAB.N 08:00 | PROVIDERS: ATTEND Family Medicine | DX: I63.9 Cerebral infarction, unspecified (principal); G45.9 Transient cerebral ischemic attack, unspecified; Z95.2 Presence of prosthetic heart valve; Z79.01 Long term (current) use of anticoagulants ==

== ENCOUNTER 2023-08-16 08:00 | Outpatient (CLI) | payer MEDICARE, BC | END 2023-08-16 08:01 | disposition home or self-care (01) | LOC: LAB.N 08:00 | PROVIDERS: ATTEND Family Medicine | DX: I63.9 Cerebral infarction, unspecified (principal); Z95.2 Presence of prosthetic heart valve; Z79.01 Long term (current) use of anticoagulants ==

== ENCOUNTER 2023-10-18 08:00 | Outpatient (CLI) | payer MEDICARE, BC | END 2023-10-18 08:01 | disposition home or self-care (01) | LOC: LAB.F 08:00 | PROVIDERS: ATTEND Specialist | DX: G45.9 Transient cerebral ischemic attack, unspecified (principal); I63.9 Cerebral infarction, unspecified; Z95.2 Presence of prosthetic heart valve; Z79.01 Long term (current) use of anticoagulants ==

== ENCOUNTER 2023-10-26 08:39 | Outpatient (CLI) | payer MEDICARE, BC ==
[2023-10-26 12:12] LABS: BASOPHILS # (AUTO) 0.1 10^3/uL (0.0-0.1); BASOPHILS % (AUTO) 0.8 %; EOSINOPHILS # (AUTO) 0.2 10^3/uL (0.0-0.7); EOSINOPHILS % (AUTO) 3.7 %; HGB - HEMOGLOBIN 13.9 g/dL (14.0-18.0); LYMPHOCYTES # (AUTO) 1.4 10^3/uL (1.5-3.5); LYMPHOCYTES % (AUTO) 23.5 %; MEAN CORPUSCULAR HEMOGLOBIN 31.3 pg (27.0-31.0); MEAN CORPUSCULAR HGB CONC 33.1 g/dL (32.0-36.0); MEAN CORPUSCULAR VOLUME 94.6 fL (80.0-94.0); MEAN PLATELET VOLUME 10.6 fL (7.4-11.4); MONOCYTES # (AUTO) 0.5 10^3/uL (0.0-1.0); NEUTROPHILS # (AUTO) 3.8 10^3/uL (1.5-6.6); NEUTROPHILS % (AUTO) 62.8 %; PLT - PLATELET COUNT 207 10^3/uL (130-450); RED BLOOD COUNT 4.44 10^6/uL (4.70-6.10); RED CELL DISTRIBUTION WIDTH 13.2 % (12.0-15.0)
[2023-10-26 12:23] LABS: BUN - BLOOD UREA NITROGEN 19 mg/dL (6-20); CALCIUM 10.5 mg/dL (8.5-10.3); CARBON DIOXIDE - CO2 31 mmol/L (21-32); CHLORIDE 104 mmol/L (101-111); CHOL/HDL RATIO 3.3 (<5.0); CHOLESTEROL 109 mg/dL; GFR - MDRD 71 (>89); GLUCOSE 116 mg/dL (74-104); HDL CHOLESTEROL 33 mg/dL; LDL CHOLESTEROL,CALCULATED 56 mg/dL; LDL/HDL RATIO 1.7 (<3.6); POTASSIUM 4.4 mmol/L (3.5-4.5); SODIUM 139 mmol/L (135-145); TRIGLYCERIDES 99 mg/dL (48-352); VLDL CHOLESTEROL 20 mg/dL
[2023-10-26 12:32] LABS: THYROID STIMULATING HORMONE 4.86 uIU/mL (0.34-5.60)
[2023-10-26 12:34] LABS: ESTIMATED AVERAGE GLUCOSE 123 mg/dL (70-100); HEMOGLOBIN A1c% 5.9 % (4.27-6.07)
== END 2023-10-26 08:40 | disposition home or self-care (01) ==
LOC: LAB.N 08:39
PROVIDERS: ATTEND Family Medicine
DX: I10 Essential (primary) hypertension (principal); Z13.220 Encounter for screening for lipoid disorders; R73.9 Hyperglycemia, unspecified; Q23.1 Congenital insufficiency of aortic valve
CPT/HCPCS: 36415; 80048; 80061; 82043; 82570; 83036; 83721; 84443; 85025

== ENCOUNTER 2023-10-27 08:00 | Outpatient (CLI) | payer MEDICARE, BC ==
[2023-10-27 21:30] LABS: CREATININE,URINE 69.9 mg/dL; MICROALBUM/CREATININE RATIO,UR 42.9 ug/mg (<30.0)
== END 2023-10-27 23:59 | disposition home or self-care (01) ==
LOC: LAB.N 08:00
PROVIDERS: ATTEND Family Medicine
DX: R73.9 Hyperglycemia, unspecified (principal)
CPT/HCPCS: 82043; 82570

== ENCOUNTER 2023-11-03 08:00 | Outpatient (CLI) | payer MEDICARE, BC | END 2023-11-03 08:01 | disposition home or self-care (01) | LOC: LAB.WCP 08:00 | PROVIDERS: ATTEND Family Medicine | DX: I63.9 Cerebral infarction, unspecified (principal); Z95.2 Presence of prosthetic heart valve; Z79.01 Long term (current) use of anticoagulants ==

== ENCOUNTER 2023-11-17 08:00 | Outpatient (CLI) | payer MEDICARE, BC | END 2023-11-17 23:59 | disposition home or self-care (01) | LOC: LAB.WCP 08:00 | PROVIDERS: ATTEND Family Medicine | DX: I63.9 Cerebral infarction, unspecified (principal); Q23.1 Congenital insufficiency of aortic valve; Z95.2 Presence of prosthetic heart valve; Z79.01 Long term (current) use of anticoagulants ==

== ENCOUNTER 2024-01-05 02:48 | Outpatient (CLI) | payer MEDICARE, BC | END 2024-01-05 23:59 | disposition EMS.NT | LOC: EMS 02:48 | DX: Z03.89 Encounter for observation for other suspected diseases and conditions ruled out (principal) ==

== ENCOUNTER 2024-01-06 22:12 | Outpatient (CLI) | payer MEDICARE, BC | END 2024-01-06 23:59 | disposition critical access hospital (66) | LOC: EMS 22:12 | DX: M54.50 Low back pain, unspecified (principal); W10.8XXA Fall (on) (from) other stairs and steps, initial encounter; Y92.008 Other place in unspecified non-institutional (private) residence as the place of occurrence of the external cause; Z79.01 Long term (current) use of anticoagulants | CPT/HCPCS: A0425; A0429 ==

== ENCOUNTER 2024-01-06 22:30 | Emergency (ER) | payer MEDICARE, BC ==
--- NOTE | 2024-01-06 22:39 | ED Physician Documentation ---
PD HPI Fall - Stated complaint Stated Complaint: GLF - History obtained from History obtained from: Patient, Family (), EMS - History of Present Illness Mechanism of injury: Slipped Fall distance: Standing position Where injury occurred: Home Timing - onset: Today Injury(ies) location: Neck, Back Quality of pain: Pain Contributing factors: Anticoagulated. No: Intoxicated Similar symptoms before: Diagnosis (SAH) Recently seen: Clinic (seen routinly for dementia and INR) - Additional information Additional information: Eddy Martínez is an 83-year-old male with dementia who is on Coumadin and has had a prior subarachnoid hemorrhage. He was taking the garbage out tonight when he slipped and fell unwitnessed. He denies any head pain has a stiff neck and low back pain but otherwise he indicates he has no specific symptoms. Review of Systems Unable to obtain: Confused PD PAST MEDICAL HISTORY - Past Medical History Cardiovascular: Arrhythmia, Valve disorder Respiratory: Asthma, Sleep apnea, CPAP use Neuro: None Endocrine/Autoimmune: None GI: None, Colon polyps, Hemorrhoids, Diverticulitis : None HEENT: None, Chronic vision loss Psych: None Musculoskeletal: Osteoarthritis, Chronic back pain Derm: Psoriasis, Other - Past Surgical History Past Surgical History: Yes Cardiovascular: Valve replacement HEENT: Tonsil/Adenoidectomy - Present Medications Home Medications: Ambulatory Orders Medication Instructions Recorded Confirmed Simvastatin 20 mg PO DAILY 09/13/13 08/03/22 lisinopriL [Lisinopril] 20 mg PO BID 03/17/16 08/03/22 Fluticasone [Flonase] 2 sprays NICOLE DAILY 05/05/16 08/03/22 Warfarin [Coumadin] 7.5 mg PO SUMOWEFR@1400 05/05/16 08/03/22 hydroCHLOROthiazide 12.5 mg PO DAILY 05/05/16 08/03/22 [Hydrochlorothiazide] Acetaminophen 500 mg PO PRN PRN 08/07/19 08/03/22 Omeprazole 20 mg PO TID 08/07/19 08/03/22 Vit B12 250 mcg PO DAILY 08/07/19 08/03/22 amLODIPine [Norvasc] 2.5 mg PO DAILY 08/07/19 08/03/22 Cyclobenzaprine [Flexeril] 10 mg PO TID PRN #20 tablet 10/06/21 08/03/22 HYDROcod/ACETAM 5/325 [[place] 5/325] 1 - 2 tablet PO Q6H PRN #7 tablet 10/06/21 08/03/22 - Allergies Allergies/Adverse Reactions: Allergies Allergy/AdvReac Type Severity Reaction Status Date / Time No Known Drug Allergies Allergy Verified 01/06/24 22:35 - Social History Does the pt smoke?: No Smoking Status: Never smoker Does the pt drink ETOH?: Yes Does the pt have substance abuse?: No - Immunizations Immunizations are current?: Yes - POLST Patient has POLST: No PD ED PE NORMAL - Vitals Vital signs reviewed: Yes (hypertensive mild ) - General General: No acute distress, Well developed/nourished, Other (The patient exhibits 2 to 3 seconds of speech latency and similar delay in execution of motor commands.) - HEENT HEENT: Atraumatic, PERRL, EOMI, Other (no pain to deep palpaiton of entire scalp) - Neck Neck: Supple, no meningeal sign, Other (mild mid cervical spine tenderness) - Cardiac Cardiac: RRR, No murmur - Respiratory Respiratory: No respiratory distress, Clear bilaterally - Abdomen Abdomen: Soft, Non tender - Back Back: No CVA TTP, No spinal TTP - Derm Derm: Normal color, Warm and dry, No rash - Extremities Extremities: No deformity, No edema - Neuro Neuro: outgoing inspector 2-12 intact, No motor deficit, No sensory deficit, Normal speech, Other (cogwheeling of the R upper ext is present) Eye Opening: Spontaneous Motor: Obeys Commands Verbal: Confused GCS Score: 14 - Psych Psych: Other (On initial evaluation the affect is flat the mood is withdrawn.) Results - Vitals Vitals: Vital Signs - 24 hr 01/06/24 01/06/24 01/06/24 22:35 23:05 23:58 Temperature 36.8 C Heart Rate 51 L 48 L 54 L Respiratory 16 12 18 Rate Blood Pressure 130/90 H 121/62 127/61 O2 Saturation 96 96 97 Oxygen O2 Source Room air - Labs Labs: Laboratory Tests 01/06/24 01/06/24 01/06/24 22:39 22:39 22:39 WBC 8.5 RBC 4.28 L Hgb 13.0 L Hct 40.8 L MCV 95.3 H MCH 30.4 MCHC 31.9 L RDW 13.3 Plt Count 190 MPV 10.2 Neut # (Auto) 6.2 Lymph # (Auto) 1.0 L [place] # (Auto) 0.9 Eos # (Auto) 0.2 Baso # (Auto) 0.0 Absolute Nucleated RBC 0.00 Nucleated RBC % 0.0 PT 21.5 H INR 2.0 H Sodium 135 Potassium 4.1 Chloride 101 Carbon Dioxide 29 Anion Gap 5.0 L BUN 25 H Creatinine 1.0 Estimated GFR (MDRD) 71 L Glucose 121 H Calcium 10.1 Total Bilirubin 1.4 H AST 20 ALT 14 Alkaline Phosphatase 78 Total Protein 7.1 Albumin 4.4 Globulin 2.7 Albumin/Globulin Ratio 1.6 Lipase 32 - Rads (name of study) CT head Relevant Findings:: Prelim report reviewed (Impression: No intracranial hemorrhage is seen. No significant intracranial abnormality is seen. Postoperative changes seen on the right, with right-sided craniotomy, right sided volume loss, and ex vacuo dilation of the right lateral ventricle.), EMP independent interpretation of test, See rad report CT cervical spine Relevant Findings:: Prelim report reviewed (Impression: Negative for acute cervical spine fracture. Multiple levels of significant underlying degenerative changes can be seen, which is worse inferiorly), EMP independent interpretation of test, See rad report Procedures - IVC sono (time) 2310 Bedside IVC sono: IVC measures (cm) (0.74), Dehydration (est 2 liter deficit) PD Medical Decision Making - ED course Complexity details: reviewed results, re-evaluated patient, considered differential, d/w patient, d/w family Reviewed Lab Results: We reviewed a complete blood count showing a normal white blood cell count of 8 .5 hemoglobin and hematocrit were mildly depressed at 13 and 40.8 similar to the range patient has had previously coagulation shows a PT of 21.5 with an INR of 2.0 chemistries show normal electrolytes BUN is elevated at 25 liver function I interpret these test indicate the patient has some ongoing blood loss as a reason for minimal depression of the hemoglobin and hematocrit his INR is normal. BUN elevated at 25 is consistent with the degree of dehydration found on interrogation of the IVC with POCUS. ED course: 83-year-old Eddy Martínez presents to the emergency department with a fall outside of his home while taking the garbage out. It was an unwitnessed fall but his was concerned about the possibility of subdural hematoma, as this has happened to him previously. He is on Coumadin. His INR is therapeutic. He has no evidence of hemorrhage in his CT. He has no other injuries related to the fall. I interrogated the patient's IVC with POCUS and found he was about 2 L deficit and administered a liter of saline. I did evaluate the patient at the bedside and found that he had some cogwheel rigidity to the right upper extremity on evaluation and by history has a wide-based gait. I was concerned when he arrived the part of the possibility of Parkinson's because of his flat affect. After he received IV hydration his animation improved and his speech latency and delay in execution of motor commands resolved. Departure - Departure Disposition: 01 Home, Self Care Clinical Impression: Dehydration, Fall from ground level Condition: Stable Instructions: ED Dehydration, ED Mechanical Fall Follow-Up: ANANYA WHITLEY MD [Physician No Access] - Comments: Today it looks like Eddy has had a fall and it does not look like he has had an injury related to this fall. We did find he was a bit dehydrated and given him some IV fluid. On my examination today I am concerned about the possibility of Parkinson's in Eddy. I found on exam he does have some cogwheeling to his upper extremities and by history of wide-based gait and a blank stare. These are all symptoms consistent with Parkinson's and this is a progressive disease and may require treatment at some point. A follow-up with your primary care doctor is indicated. Falls are an issue with Parkinson's. Forms: PCP List Discharge Date/Time: 01/07/24 00:50
[2024-01-06 22:45] LABS: BASOPHILS % (AUTO) 0.5 %; EOSINOPHILS # (AUTO) 0.2 10^3/uL (0.0-0.7); EOSINOPHILS % (AUTO) 2.5 %; HCT - HEMATOCRIT 40.8 % (42.0-52.0); LYMPHOCYTES % (AUTO) 12.3 %; MEAN CORPUSCULAR HEMOGLOBIN 30.4 pg (27.0-31.0); MEAN CORPUSCULAR HGB CONC 31.9 g/dL (32.0-36.0); MEAN CORPUSCULAR VOLUME 95.3 fL (80.0-94.0); MEAN PLATELET VOLUME 10.2 fL (7.4-11.4); MONOCYTES # (AUTO) 0.9 10^3/uL (0.0-1.0); MONOCYTES % (AUTO) 11.1 %; NEUTROPHILS # (AUTO) 6.2 10^3/uL (1.5-6.6); NEUTROPHILS % (AUTO) 73.2 %; PLT - PLATELET COUNT 190 10^3/uL (130-450); RED BLOOD COUNT 4.28 10^6/uL (4.70-6.10); RED CELL DISTRIBUTION WIDTH 13.3 % (12.0-15.0); WHITE BLOOD COUNT 8.5 x10^3/uL (4.8-10.8)
[2024-01-06 22:54] LABS: PT - PROTHROMBIN TIME 21.5 secs (9.9-12.6)
[2024-01-06 23:02] LABS: ALBUMIN 4.4 g/dL (3.2-5.5); ALBUMIN/GLOBULIN RATIO 1.6 (1.0-2.2); BILIRUBIN,TOTAL 1.4 mg/dL (0.2-1.0); CALCIUM 10.1 mg/dL (8.5-10.3); POTASSIUM 4.1 mmol/L (3.5-4.5); TOTAL PROTEIN 7.1 g/dL (6.4-8.9)
--- NOTE | 2024-01-06 23:30 | CT Report ---
PROCEDURE: Head WO INDICATIONS: coumadin fall TECHNIQUE: Noncontrast 4.5 mm thick angled axial sections acquired from the foramen magnum to the vertex. For r adiation dose reduction, the following was used: automated exposure control, adjustment of mA and/or kV according to patient size. COMPARISON: 09/30/2021, 09/23/2021. Correlation is made with brain MRI, 02/08/2023. Correlation is also made with the accompanying imaging. FINDINGS: Image quality: Excellent. CSF spaces: Basal cisterns are patent. No extra-axial fluid collections. Ventricles are are stable , with ex vacuo dilatation seen involving the right lateral ventricle. Brain: There is focal volume loss seen involving the posterior aspect of the right cerebral hemisphe re. No midline shift. No intracranial masses or hemorrhage. Balderas-white matter interface is normal. Skull and face: Right-sided craniotomy change is seen. Calvarium and visualized facial bones are int act, without suspicious lesions. Sinuses: Visualized sinuses and mastoids are clear. IMPRESSION: No intracranial hemorrhage is seen. No significant intracranial abnormality is seen. Postoperative changes seen on the right, with right-sided craniotomy, right-sided volume loss, and ex vacuo dilatation of the right lateral ventricle. Reviewed by: Gentry Correa MD on 01/06/2024 10:29 PM CARLITA Approved by: Gentry Correa MD on 01/06/2024 10:29 PM CARLITA Station ID: [id number]
--- NOTE | 2024-01-06 23:32 | CT Report ---
PROCEDURE: Cervical Spine WO INDICATIONS: head injury neck stiffness TECHNIQUE: Noncontrast 3 mm thick sections acquired from the skull base to the T4 level. Sagittal and coronal r eformats were then constructed. Dedicated oblique axial images were performed through the disk leve ls. For radiation dose reduction, the following was used: automated exposure control, adjustment o f mA and/or kV according to patient size. COMPARISON: Correlation is made with the accompanying imaging. FINDINGS: Image quality: Excellent. Bones: No fractures or dislocations. Visualized superior ribs are intact. Focal degenerative change can be seen involving the C1-C2 interface anteriorly. Posterior to the dens , there is a partially calcified soft tissue pannus seen. There is moderate severe disc space narrowi ng seen at the C3-C4, with mild to moderate disc space narrowing at C4-C5. Moderate posterior disc sp mark narrowing can be seen at C5-C6 and C6-C7. Multiple levels of significant bridging anterior osteop hytes are seen. Posteriorly directed endplate osteophytes can be seen, which are worst at the C6-C7 l evel. Multiple levels of facet arthropathy can be seen. Soft tissues: Prevertebral soft tissues are normal in thickness. No paravertebral hematomas. No ap ical pneumothoraces. Atherosclerotic calcification is seen. IMPRESSION: Negative for acute cervical spine fracture. Multiple levels of significant underlying degenerative change can be seen, which are overall worst in feriorly. Reviewed by: Gentry Correa MD on 01/06/2024 10:31 PM CARLITA Approved by: Gentry Correa MD on 01/06/2024 10:31 PM SDCONNIE Station ID: [id number]
[2024-01-06] MEDS: SODIUM CHLORIDE 0.9% 1,000 ML IV STA (23:36)
[2024-01-07 00:14] VITALS: BP 127/61; O2SAT 97
== END 2024-01-07 00:50 | disposition home or self-care (01) ==
LOC: EDUNIT# → ED 22:30
DX: Z04.3 Encounter for examination and observation following other accident (principal); E86.0 Dehydration; R29.898 Other symptoms and signs involving the musculoskeletal system
CPT/HCPCS: 36415; 80053; 83690; 85025; 85610; 99284

== ENCOUNTER 2024-01-10 17:13 | Outpatient (CLI) | payer MEDICARE, BC ==
--- NOTE | 2024-01-10 17:33 | CT Report ---
PROCEDURE: Head WO INDICATIONS: COGNITIVE CHANGES TECHNIQUE: Noncontrast 4.5 mm thick angled axial sections acquired from the foramen magnum to the vertex. For r adiation dose reduction, the following was used: automated exposure control, adjustment of mA and/or kV according to patient size. COMPARISON: CT head 01/06/2024 FINDINGS: Image quality: Excellent. The ventricular system and cortical sulci demonstrate atrophy, consistent for patient's stated age. There are areas of hypodensity in the periventricular and subcortical white matter. Extra-axial dila tion is present within the right ventricular temporal horn most consistent with adjacent encephalomal acia and postoperative change. There is no acute intra or extra-axial fluid collection. No acute hem orrhage, mass lesion or midline shift. Brainstem is unremarkable. Globes are symmetrical. Sinuses are aerated. Osseous structures are intact. Postoperative changes dem onstrating right craniotomy. IMPRESSION: 1. No acute intracranial process. 2. Moderate atrophy and chronic microvascular ischemic changes. Reviewed by: Rosetta Goodrich MD on 01/10/2024 5:32 PM PDT Approved by: Rosetta Goodrich MD on 01/10/2024 5:32 PM PDT Station ID: [id number]
--- NOTE | 2024-01-11 12:47 | XRAY Report ---
PROCEDURE: Hips w/Pelvis 2-3V BL INDICATIONS: BILATERAL HIP JOINT PAIN TECHNIQUE: 4 view(s) of the hip were acquired. COMPARISON: None. FINDINGS: Bones: No fractures or dislocations. Right worse then left bilateral hip joint osteoarthritic change s are seen with superior joint space narrowing, subchondral sclerosis and marginal osteophyte formati on. No evidence of avascular necrosis of femoral heads. No suspicious bony lesions. The visualized p elvic ring appears intact. Soft tissues: No suspicious soft tissue calcifications or masses. IMPRESSION: No acute pelvic or hip fracture. Right worse than left bilateral hip joint osteoarthritis. No evidenc e of avascular necrosis. Reviewed by: Demario Benavidez MD on 01/11/2024 12:45 PM PDT Approved by: Demario Benavidez MD on 01/11/2024 12:45 PM PDT Station ID: [id number]
== END 2024-01-10 17:14 | disposition home or self-care (01) ==
LOC: DI 17:13
PROVIDERS: ATTEND Family Medicine
DX: R41.89 Other symptoms and signs involving cognitive functions and awareness (principal); G31.89 Other specified degenerative diseases of nervous system; I67.82 Cerebral ischemia; M16.0 Bilateral primary osteoarthritis of hip